=== PATIENT | female | born 1960 | race African-American/Black ===

== ENCOUNTER 2018-02-01 15:30 | Inpatient (IN) | payer MEDICARE, MEDICAID ==
[2018-02-01 16:29] VITALS: BP 124/70
[2018-02-01] MEDS ORDERED: Magnesium Hydroxide (MOM) 30 mL UDC PO PRN (16:29)
[2018-02-01] MEDS ORDERED: Maalox 30 mL Cup PO PRN (16:29)
[2018-02-02] MEDS: Multivitamin Tab PO SCH (10:05)
[2018-02-02] MEDS: Aspirin 81mg Chewable Tab PO SCH (10:06)
--- NOTE | 2018-02-02 15:35 | History and Physical ---
History of Present Illness - HPI Chief Complaint: Psychosis HPI: 57 y/o female who is a direct admit to [facility] from [facility] for a 5150. Patient is gravely disabled and danger to self due to refusing to eat, drink or take medications. Patient is reported to having heard voices telling to kill herself. PMH includes Type 2 diabetes, chronic kidney disease stage 3, CAD with CABG, schizophrenia, Essential HTN, and hypelipidemia. She has no known allergies and is a full code. 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 Labwork Vital Signs: Last Vital Signs Temp 97.6 F 02/01/18 20:00 Pulse 77 02/01/18 20:00 Resp 19 02/01/18 20:00 BP 125/56 02/01/18 20:00 Pulse Ox Past Medical History Cardiovascular: Report: CAD, HTN, Hyperlipidemia Pulmonary: Report: No Pertinent Hx MUSIC EDUCATOR: Report: CVA GI: Report: No Pertinent Hx Psych: Report: Psychosis, Schizophrenia Musculoskeletal: Report: No Pertinent Hx Rheumatologic: Report: No pertinent Hx Infectious Disease: Report: No Pertinent Hx Renal/: Report: Chronic Renal Failure (Stage 3) Dermatology: Report: No Pertinent Hx - Past Surgical History Past Surgical History: CABG Family Medical History - Family Member Mother History Unknown: Yes Social History Smoke: No Alcohol: None Drugs: None Lives: Alone - Medications Home Medications: Home Medication Medication Instructions Recorded Type Aripiprazole [Abilify] 2.5 mg PO BID 02/01/18 History Aspirin [Aspirin Chewable] 162 mg PO DAILY 02/01/18 History - Allergies Allergies/Adverse Reactions: Allergies Allergy/AdvReac Type Severity Reaction Status Date / Time No Known Allergies Allergy Verified 02/01/18 16:24 Review of Systems - Review of Systems Constitutional: Report: No Significant Eyes: Report: No Significant ENT: Report: No Significant Respiratory: Report: No Significant Cardiovascular: Report: No Significant Gastrointestinal: Report: No Significant Genitourinary: Report: No Significant Musculoskeletal: Report: No Significant Skin: Report: No Significant Neurological: Report: No Significant - Lab Results All Lab Results last 24 hours: Laboratory Results - last 24 hr 02/01/18 17:35 POC Glucose 129 H - Assessment Assessment: psychosis Type 2 DM Chronic kidney Disorder Stage 3 h/o CABG HTN Htperlipidemia CAD Schizophrenia 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
[2018-02-02] MEDS: INSULIN ASPART SLIDING SCALE 100 UNITS/ML UNIT SUBQ SCH ×2 (17:36→20:12)
--- NOTE | 2018-02-03 05:35 | Psychosocial Evaluation ---
DATE OF SERVICE: 02/02/2018 IDENTIFYING DATA: The patient is a 57-year-old -Hungarian woman, , living with her . Information obtained by directly interviewing the patient as well as reviewing the admission papers. JUSTIFICATION OF HOSPITALIZATION: The patient is admitted on 5150 as being gravely disabled and danger to self, as per the information obtained, the patient is reported to have not been here. CHIEF COMPLAINT: "I do not know. My is taking care of me." HISTORY OF PRESENT ILLNESS: This is the first psychiatric hospitalization to this patient on a 5150 for grave disability and danger to self because the patient is not eating or drinking, or taking any medications. The patient has been reported to have been responding to the voices that are telling to kill her ____. Staff was spoken to. The patient is interviewed. During the interview, the patient is mentioning that since her sister she has been having difficult time to deal with the life and she has not been able to accept it and telling that the sister is in [place]. The patient is not sleeping. Appetite is reported to be very poor. The patient is stating that she has been having a mental illness for a long period of time and is being followed up by a psychiatrist in [place]. PAST PSYCHIATRIC HISTORY: Details are not known with regard to psychiatric hospitalizations. MEDICAL HISTORY: The patient has a history of type 2 diabetes mellitus, chronic kidney disease, history of CABG, essential hypertension, and hyperlipidemia. ALLERGIES: None at this time. SUBSTANCE ABUSE HISTORY: None. SOCIAL HISTORY: The patient is , living with her . The patient has 2 grownup children. STRENGTH AND ASSETS: The patient is motivated. MENTAL STATUS EXAMINATION: The patient is a 57-year-old, looking older than her stated age. Personal hygiene is extremely poor. Insight and judgment are very much impaired. Impulse control is noted to be limited. The patient is feeling helpless and hopeless. The patient is stating that the voices are telling that they are going to be killing her. The patient is not able to care for self. The patient is alert and aware that she is in the hospital. Attention span and concentration are noted to be very poor. The patient is motivated for treatment. ____ examination is significant for the patient to be disheveled and confused and with a poor personal hygiene. DIAGNOSTIC IMPRESSION: AXIS I: Schizophrenia, chronic paranoid type; rule out schizoaffective disorder. AXIS II: None. AXIS III: Diabetes mellitus, hypertension, chronic kidney disease, CABG, hyperlipidemia, and essential hypertension. IMMEDIATE TREATMENT PLAN: The patient is going to be continued on Abilify and Lexapro is going to be added. ESTIMATED LENGTH OF STAY: Three to five days. DISCHARGE CRITERIA: When the patient is no longer a threat to self or others and be able to cope up with the stress. [facility]# [id number]
[2018-02-03] MEDS: INSULIN ASPART SLIDING SCALE 100 UNITS/ML UNIT SUBQ SCH ×4 (06:47→20:48)
[2018-02-03] MEDS: Multivitamin Tab PO SCH (10:26)
[2018-02-03] MEDS: Aspirin 81mg Chewable Tab PO SCH (10:27)
[2018-02-03] MEDS: Escitalopram Oxalate 5 mg Tab PO SCH (10:27)
--- NOTE | 2018-02-04 00:31 | Consultation ---
DATE OF CONSULTATION: 02/03/2018 REQUESTING PHYSICIAN: Ann Marie Bajwa M.D. TYPE OF CONSULTATION: Psychology. HISTORY OF PRESENT ILLNESS: The following is by review of the medical record and by the patient's self report. The patient is a 57-year-old -[place]isian female. The patient is being admitted on a 5150 hold as being gravely disabled as well as a danger to self. According to record review, the patient's family indicated that she has not been eating or drinking or taking any medications. The patient has been reported to be responding to voices that are command type telling her to kill herself. The patient stated that her sister recently. There is an indication of a history of mental illness. The patient admits passive suicidal ideation with intention, but no specific plan. PAST MEDICAL HISTORY: Please see history and physical. PAST PSYCHIATRIC HISTORY: Information is not available at the time of this clinical interview. ALLERGIES: No known drug allergies. CURRENT MEDICATIONS: Please see admission medication reconciliation. SUBSTANCE ABUSE HISTORY: None. PSYCHOSOCIAL HISTORY: The patient is and lives with her at home. The patient has 2 adult children. The patient stated that her sister in [place] about a year ago. The patient stated that she is having difficulty accepting her sister's passing. The patient did not answer questions about occupational history or educational history. The patient denied any abuse history or any legal problems at this time. The patient states she is baptism, but did not state any specific denomination. MENTAL STATUS EXAMINATION: The patient appears to be her state age. The patient's personal hygiene seems to be poor. The patient's attitude is superficially cooperative. Eye contact is poor. The patient's mood is dysphoric. Affect is constricted and incongruent to mood. The patient's body odor is noticeable. The patient is somewhat disheveled. Thought process shows to be confused and possible derailments are noted here. The patient denied any paranoid delusions. She denied any visual hallucinations. However, the patient does endorse the experience of auditory hallucinations. Specifically she hears voices that are command type telling her to kill herself. The patient's behavior has been redirectable thus far. Impulse control is compromised. The patient was unable to sustain focus and attention. Concentration is poor. The patient's memory seems to be impaired for immediate short term and long-term dimensions. Sensorium is alert and oriented to place and self only. The patient did not participate in the interpretation of proverbs. The patient was quite confused about this particular portion of the clinical interview. The patient appears to be motivated for treatment. However, insight is poor. Judgment is impaired. DIAGNOSTIC IMPRESSION: AXIS I: Provisional diagnosis of schizophrenia, chronic paranoid type by history. AXIS II: Deferred. AXIS III: Please see history and physical. PLAN: The patient has been seen by Dr. Bajwa for psychiatric evaluation and for the management of the patient's psychotropic medications. The patient is continued on Abilify and Lexapro will be added. She will be closely monitored for the efficacy of medication and any possible side effects by the psychiatrist and nursing staff. We will provide reality orientation, reality differentiation, and reality integration. We will provide every opportunity for the patient to verbally contract for safety, i.e., no self-harm as well as to verbalize any suicidal thoughts to the staff as she is experiencing them. We will provide coping strategies for phase of life issues. We will provide grief and bereavement therapy with respect to the patient's biological sister passing recently. We will continue to provide supportive psychotherapy throughout the course of the patient's hospital stay. Thank you, Dr. Bajwa, for this consult and the opportunity to participate with you in this patient's care. JOB# [id number]
--- NOTE | 2018-02-04 04:36 | Progress Notes ---
DATE: 02/03/2018 SUBJECTIVE: Staff was spoken to. The patient is interviewed. Mood is noted to be anxious and depressed. Affect is constricted. The patient is still responding to internal stimuli. Insight and judgment at this time are noted to be still impaired. Impulse control seems to be limited. The patient is still not able to care for herself and the patient seems to have fungal infection under the breasts. ASSESSMENT: The patient is still psychotic and depressed. PLAN: To continue the patient with the current medications and followup. JOB# [id number]
[2018-02-04] MEDS: INSULIN ASPART SLIDING SCALE 100 UNITS/ML UNIT SUBQ SCH ×4 (06:36→20:58)
--- NOTE | 2018-02-04 08:09 | General Progress Note ---
Subjective - Review of Systems Service Date: 02/04/18 Subjective: Patient was awake, alert, afebrile VS T98.1 P80 R20 BP 119/54 Objective - Results Recent Labs: Laboratory Last Values POC Glucose 129 MG/DL (70 - 105) H 02/01/18 17:35 - Physical Exam Vitals and I&O: Vital Signs Temp 98.1 F 02/04/18 06:23 Pulse 80 02/04/18 06:23 Resp 20 02/04/18 06:23 BP 119/54 02/04/18 06:23 Pulse Ox 94 02/04/18 06:23 Intake & Output 02/03/18 02/04/18 02/04/18 18:59 06:59 18:59 Intake Total 240 Balance 240 Intake: Oral 240 Other: # Voids 2 Active Medications: Current Medications Acetaminophen (Tylenol) 650 mg PO Q4HR PRN PRN Reason: Mild Pain / Temp above 100 Stop: 04/02/18 16:28 Al Hydrox/Mg Hydrox/Simethicone (Maalox) 30 ml PO Q4HR PRN PRN Reason: GI DISTRESS Stop: 04/02/18 16:28 Aripiprazole (Abilify) 5 mg PO HS AALIYAH PRN Reason: Protocol Stop: 04/03/18 20:59 Last Admin: 02/03/18 21:28 Dose: 5 mg Aspirin (Aspirin Chewable) 162 mg PO DAILY AALIYAH Stop: 04/03/18 08:59 Last Admin: 02/03/18 10:27 Dose: 162 mg Escitalopram Oxalate (Lexapro) 5 mg PO DAILY AALIYAH PRN Reason: Protocol Stop: 04/04/18 08:59 Last Admin: 02/03/18 10:27 Dose: 5 mg Insulin Aspart (Novolog Insulin Sliding Scale) 0 units SUBQ ACHS AALIYAH PRN Reason: Protocol Stop: 04/03/18 16:29 Last Admin: 02/04/18 06:36 Dose: Not Given Lisinopril (Zestril) 5 mg PO DAILY AALIYAH Stop: 04/04/18 08:59 Last Admin: 02/03/18 10:28 Dose: 5 mg Lorazepam (Ativan) 0.5 mg PO Q4HR PRN; Protocol PRN Reason: Anxiety Stop: 03/03/18 16:28 Magnesium Hydroxide (Milk Of Magnesia) 30 ml PO HS PRN PRN Reason: Constipation Metformin HCl (Glucophage) 500 mg PO DAILY [facility] Stop: 04/04/18 08:59 Last Admin: 02/03/18 10:26 Dose: 500 mg Multivitamins/Vitamin C (Theragran) 1 tab PO DAILY AALIYAH Stop: 04/03/18 08:59 Last Admin: 02/03/18 10:26 Dose: 1 tab Simvastatin (Zocor) 10 mg PO HS AALIYAH PRN Reason: Protocol Stop: 04/03/18 20:59 Last Admin: 02/03/18 21:28 Dose: 10 mg Zolpidem Tartrate (Ambien) 5 mg PO HS PRN PRN Reason: Insomnia Stop: 04/02/18 16:28 Last Admin: 02/03/18 21:28 Dose: 5 mg General: Alert, No acute distress HEENT: Atraumatic, PERRLA, EOMI Neck: Supple Cardiovascular: Regular rate, Normal S1, Normal S2 Abdomen: Bowel sounds, Soft Extremities: no Clubbing, no Cyanosis, no Edema Neurological: Normal gait Assessment/Plan - Assessment Assessment: psychosis Type 2 DM Chronic kidney Disorder Stage 3 h/o CABG HTN Htperlipidemia CAD Schizophrenia constracutres to upepr extremities incontinence - Plan [facility] current orders.
[2018-02-04] MEDS: Escitalopram Oxalate 5 mg Tab PO SCH (09:52)
[2018-02-04] MEDS: Multivitamin Tab PO SCH (09:52)
[2018-02-04] MEDS: Aspirin 81mg Chewable Tab PO SCH (09:53)
--- NOTE | 2018-02-04 15:48 | Progress Notes ---
DATE: 02/04/2018 SUBJECTIVE: Staff was spoken to. The patient's affect is constricted. Insight and judgment is noted to be still impaired. Impulse control seems to be limited. The patient is very depressed, isolative and withdrawn. Personal hygiene is noted to be extremely poor. The patient is currently on the escitalopram to help her with the depression and the patient also has been on aripiprazole to help her with the voices. The patient continues to have the problem with the voices and hence the aripiprazole is going to be changed to 10 mg at bedtime and the patient is going to be followed up with the supportive therapy. The patient is not able to care for herself at this time. ASSESSMENT: The patient is still psychotic and depressed. PLAN: To continue the patient with the supportive therapy. Encouraged the patient to verbalize the concerns rather than to act out. JOB# [id number]
[2018-02-05] MEDS: INSULIN ASPART SLIDING SCALE 100 UNITS/ML UNIT SUBQ SCH ×4 (06:41→21:05)
--- NOTE | 2018-02-05 08:24 | General Progress Note ---
Subjective - Review of Systems Service Date: 02/06/18 Subjective: Patient was awake, alert, afebrile. VS T98.1 P89 R20 BP 110/76 Objective - Results Recent Labs: Laboratory Last Values POC Glucose 129 MG/DL (70 - 105) H 02/01/18 17:35 - Physical Exam Vitals and I&O: Vital Signs Temp 98.1 F 02/05/18 06:35 Pulse 89 02/05/18 06:35 Resp 20 02/05/18 06:35 BP 110/76 02/05/18 06:35 Pulse Ox 98 02/05/18 06:35 Intake & Output 02/04/18 02/05/18 02/05/18 18:59 06:59 18:59 Intake Total 60 Balance 60 Intake: Oral 60 Other: # Voids 2 # Bowel Movements 0 Active Medications: Current Medications Acetaminophen (Tylenol) 650 mg PO Q4HR PRN PRN Reason: Mild Pain / Temp above 100 Stop: 04/02/18 16:28 Al Hydrox/Mg Hydrox/Simethicone (Maalox) 30 ml PO Q4HR PRN PRN Reason: GI DISTRESS Stop: 04/02/18 16:28 Aripiprazole (Abilify) 10 mg PO HS AALIYAH PRN Reason: Protocol Stop: 04/05/18 20:59 Last Admin: 02/04/18 20:58 Dose: 10 mg Aspirin (Aspirin Chewable) 162 mg PO DAILY AALIYAH Stop: 04/03/18 08:59 Last Admin: 02/04/18 09:53 Dose: 162 mg Escitalopram Oxalate (Lexapro) 5 mg PO DAILY AALIYAH PRN Reason: Protocol Stop: 04/04/18 08:59 Last Admin: 02/04/18 09:52 Dose: 5 mg Insulin Aspart (Novolog Insulin Sliding Scale) 0 units SUBQ ACHS AALIYAH PRN Reason: Protocol Stop: 04/03/18 16:29 Last Admin: 02/05/18 06:41 Dose: Not Given Lisinopril (Zestril) 5 mg PO DAILY AALIYAH Stop: 04/04/18 08:59 Last Admin: 02/04/18 09:54 Dose: Not Given Lorazepam (Ativan) 0.5 mg PO Q4HR PRN; Protocol PRN Reason: Anxiety Stop: 03/03/18 16:28 Magnesium Hydroxide (Milk Of Magnesia) 30 ml PO HS PRN PRN Reason: Constipation Metformin HCl (Glucophage) 500 mg PO DAILY AALI[facility] Stop: 04/04/18 08:59 Last Admin: 02/04/18 09:52 Dose: 500 mg Multivitamins/Vitamin C (Theragran) 1 tab PO DAILY AALIYAH Stop: 04/03/18 08:59 Last Admin: 02/04/18 09:52 Dose: 1 tab Simvastatin (Zocor) 10 mg PO HS AALIYAH PRN Reason: Protocol Stop: 04/03/18 20:59 Last Admin: 02/04/18 20:58 Dose: 10 mg Zolpidem Tartrate (Ambien) 5 mg PO HS PRN PRN Reason: Insomnia Stop: 04/02/18 16:28 Last Admin: 02/03/18 21:28 Dose: 5 mg General: Alert, No acute distress HEENT: Atraumatic, PERRLA, EOMI Neck: Supple Cardiovascular: Regular rate, Normal S1, Normal S2 Abdomen: Bowel sounds, Soft Extremities: no Clubbing, no Cyanosis, no Edema Neurological: Normal gait Assessment/Plan - Assessment Assessment: psychosis Type 2 DM Chronic kidney Disorder Stage 3 h/o CABG HTN Htperlipidemia CAD Schizophrenia constracutres to upepr extremities incontinence - Plan [facility].
[2018-02-05] MEDS: Escitalopram Oxalate 5 mg Tab PO SCH (09:03)
[2018-02-05] MEDS: Aspirin 81mg Chewable Tab PO SCH (09:03)
[2018-02-05] MEDS: Multivitamin Tab PO SCH (09:04)
--- NOTE | 2018-02-06 03:07 | Progress Notes ---
DATE: 02/05/2018 SUBJECTIVE: Staff was spoken to. The patient is interviewed. Mood is noted to be depressed. Affect is constricted. The patient is isolated and withdrawn. Her insight and judgment at this time are noted to be very much impaired. Impulse control is noted to be poor. The patient has been stating that she does not need any medications. The patient has been very reluctant to comply with the treatment. Personal hygiene is noted to be extremely poor. Staff are reporting that the patient has been having fungal infection underneath her breasts and physical examination is requested to be done and the primary care physician has been requested to take a look at the patient's fungal infection and the patient at this time is gravely disabled and total care. The patient is still responding to the internal stimuli. Coping skills are noted to be extremely poor. ASSESSMENT: The patient is still paranoid. PLAN: I encouraged the patient to verbalize the concerns. I will continue the patient with the Abilify and increase the dose on the citalopram to 10 mg and follow the patient up. JOB# [id number]
[2018-02-06] MEDS: INSULIN ASPART SLIDING SCALE 100 UNITS/ML UNIT SUBQ SCH ×4 (07:29→22:14)
--- NOTE | 2018-02-06 08:08 | General Progress Note ---
Subjective - Review of Systems Service Date: 02/06/18 Subjective: Patient was awake, alert, afebrile. VS T97.1 P74 R18 BP 120/74 Objective - Results Recent Labs: Laboratory Last Values POC Glucose 83 MG/DL (70 - 105) 02/06/18 06:49 - Physical Exam Vitals and I&O: Vital Signs Temp 97.1 F 02/06/18 07:02 Pulse 74 02/06/18 07:02 Resp 18 02/06/18 07:02 BP 120/74 02/06/18 07:02 Pulse Ox 98 02/06/18 07:02 Intake & Output 02/05/18 02/06/18 02/06/18 18:59 06:59 18:59 Intake Total 480 120 Balance 480 120 Intake: Oral 480 120 Other: # Voids 2 3 Active Medications: Current Medications Acetaminophen (Tylenol) 650 mg PO Q4HR PRN PRN Reason: Mild Pain / Temp above 100 Stop: 04/02/18 16:28 Al Hydrox/Mg Hydrox/Simethicone (Maalox) 30 ml PO Q4HR PRN PRN Reason: GI DISTRESS Stop: 04/02/18 16:28 Aripiprazole (Abilify) 10 mg PO HS AALIYAH PRN Reason: Protocol Stop: 04/05/18 20:59 Last Admin: 02/05/18 20:59 Dose: 10 mg Aspirin (Aspirin Chewable) 162 mg PO DAILY [facility] Stop: 04/03/18 08:59 Last Admin: 02/05/18 09:03 Dose: 162 mg Escitalopram Oxalate (Lexapro) 10 mg PO DAILY AALIYAH PRN Reason: Protocol Stop: 04/06/18 18:49 Insulin Aspart (Novolog Insulin Sliding Scale) 0 units SUBQ ACHS AALIYAH PRN Reason: Protocol Stop: 04/03/18 16:29 Last Admin: 02/06/18 07:29 Dose: Not Given Lisinopril (Zestril) 5 mg PO DAILY [facility] Stop: 04/04/18 08:59 Last Admin: 02/05/18 09:03 Dose: 5 mg Lorazepam (Ativan) 0.5 mg PO Q4HR PRN; Protocol PRN Reason: Anxiety Stop: 03/03/18 16:28 Last Admin: 02/05/18 20:59 Dose: 0.5 mg Magnesium Hydroxide (Milk Of Magnesia) 30 ml PO HS PRN PRN Reason: Constipation Metformin HCl (Glucophage) 500 mg PO DAILY AALIYAH Stop: 04/04/18 08:59 Last Admin: 02/05/18 09:04 Dose: 500 mg Multivitamins/Vitamin C (Theragran) 1 tab PO DAILY AALIYAH Stop: 04/03/18 08:59 Last Admin: 02/05/18 09:04 Dose: 1 tab Simvastatin (Zocor) 10 mg PO HS AALIYAH PRN Reason: Protocol Stop: 04/03/18 20:59 Last Admin: 02/05/18 20:59 Dose: 10 mg Zolpidem Tartrate (Ambien) 5 mg PO HS PRN PRN Reason: Insomnia Stop: 04/02/18 16:28 Last Admin: 02/05/18 20:59 Dose: 5 mg General: Alert, No acute distress HEENT: Atraumatic, PERRLA, EOMI Neck: Supple Cardiovascular: Regular rate, Normal S1, Normal S2 Abdomen: Bowel sounds, Soft Extremities: no Clubbing, no Cyanosis, no Edema Neurological: Normal gait Assessment/Plan - Assessment Assessment: psychosis Type 2 Diabetes mellitus Chronic kidney Disorder Stage 3 h/o Coronary Artery Bypass Graft Hypertension Hyperlipidemia CAD Schizophrenia 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
[2018-02-06] MEDS: Multivitamin Tab PO SCH (09:15)
[2018-02-06] MEDS: Escitalopram Oxalate 5 mg Tab PO SCH (09:15)
[2018-02-06] MEDS: Aspirin 81mg Chewable Tab PO SCH (09:15)
--- NOTE | 2018-02-06 17:32 | Progress Notes ---
DATE: 02/06/2018 SUBJECTIVE: Staff was spoken to. The patient is interviewed. Mood is noted to be depressed. Affect is constricted. Insight and judgment are noted to be still impaired. Impulse control is noted to be limited. Coping skills are noted to be limited. The patient has been having difficult time to cope with the stress. No side effects to the medications are noted. The patient is isolative and withdrawn at this time. The patient continues to be responding to internal stimuli, but he is stating that he does not need to be on medication. ASSESSMENT: The patient is still depressed and psychotic. PLAN: To continue the patient with the current medications. I encouraged the patient to verbalize the concerns rather than to act out. [facility]# [id number]
[2018-02-07] MEDS: INSULIN ASPART SLIDING SCALE 100 UNITS/ML UNIT SUBQ SCH ×4 (06:52→21:49)
--- NOTE | 2018-02-07 08:28 | General Progress Note ---
Subjective - Review of Systems Service Date: 02/07/18 Subjective: Patient was awake, alert, afebrile. VS T97.2 P79 R20 BP 123/78 Objective - Results Recent Labs: Laboratory Last Values POC Glucose 83 MG/DL (70 - 105) 02/06/18 21:59 - Physical Exam Vitals and I&O: Vital Signs Temp 97.2 F 02/07/18 06:36 Pulse 79 02/07/18 06:36 Resp 20 02/07/18 06:36 BP 123/78 02/07/18 06:36 Pulse Ox 100 02/07/18 06:36 Intake & Output 02/06/18 02/07/18 02/07/18 18:59 06:59 18:59 Intake Total 600 250 Output Total 3 Balance 600 247 Intake: Oral 600 250 Output: Stool 3 Other: # Voids 2 # Bowel Movements 1 Active Medications: Current Medications Acetaminophen (Tylenol) 650 mg PO Q4HR PRN PRN Reason: Mild Pain / Temp above 100 Stop: 04/02/18 16:28 Al Hydrox/Mg Hydrox/Simethicone (Maalox) 30 ml PO Q4HR PRN PRN Reason: GI DISTRESS Stop: 04/02/18 16:28 Aripiprazole (Abilify) 10 mg PO HS AALIYAH PRN Reason: Protocol Stop: 04/05/18 20:59 Last Admin: 02/07/18 06:49 Dose: Not Given Aspirin (Aspirin Chewable) 162 mg PO DAILY AALIYAH Stop: 04/03/18 08:59 Last Admin: 02/06/18 09:15 Dose: 162 mg Escitalopram Oxalate (Lexapro) 10 mg PO DAILY AALIYAH PRN Reason: Protocol Stop: 04/06/18 18:49 Last Admin: 02/06/18 09:15 Dose: 10 mg Insulin Aspart (Novolog Insulin Sliding Scale) 0 units SUBQ ACHS AALIYAH PRN Reason: Protocol Stop: 04/03/18 16:29 Last Admin: 02/07/18 06:52 Dose: Not Given Lisinopril (Zestril) 5 mg PO DAILY AALIYAH Stop: 04/04/18 08:59 Last Admin: 02/06/18 09:16 Dose: 5 mg Lorazepam (Ativan) 0.5 mg PO Q4HR PRN; Protocol PRN Reason: Anxiety Stop: 03/03/18 16:28 Last Admin: 02/05/18 20:59 Dose: 0.5 mg Magnesium Hydroxide (Milk Of Magnesia) 30 ml PO HS PRN PRN Reason: Constipation Metformin HCl (Glucophage) 500 mg PO DAILY AALI[facility]AH Stop: 04/04/18 08:59 Last Admin: 02/06/18 09:16 Dose: 500 mg Multivitamins/Vitamin C (Theragran) 1 tab PO DAILY A[facility] Stop: 04/03/18 08:59 Last Admin: 02/06/18 09:15 Dose: 1 tab Simvastatin (Zocor) 10 mg PO HS AALIYAH PRN Reason: Protocol Stop: 04/03/18 20:59 Last Admin: 02/07/18 06:51 Dose: Not Given Zolpidem Tartrate (Ambien) 5 mg PO HS PRN PRN Reason: Insomnia Stop: 04/02/18 16:28 Last Admin: 02/05/18 20:59 Dose: 5 mg General: Alert, No acute distress HEENT: Atraumatic, PERRLA, EOMI Neck: Supple Cardiovascular: Regular rate, Normal S1, Normal S2 Abdomen: Bowel sounds, Soft Extremities: no Clubbing, no Cyanosis, no Edema Neurological: Normal gait Assessment/Plan - Assessment Assessment: psychosis Type 2 Diabetes mellitus Chronic kidney Disorder Stage 3 h/o Coronary Artery Bypass Graft Hypertension Hyperlipidemia CAD Schizophrenia 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
[2018-02-07] MEDS: Aspirin 81mg Chewable Tab PO SCH (09:39)
[2018-02-07] MEDS: Multivitamin Tab PO SCH (09:39)
[2018-02-07] MEDS: Escitalopram Oxalate 5 mg Tab PO SCH (09:39)
--- NOTE | 2018-02-08 03:00 | Progress Notes ---
DATE: 02/07/2018 PSYCHIATRIC PROGRESS NOTE SUBJECTIVE: Staff was spoken to. The patient is interviewed. Mood is noted to be irritable. Affect is constricted. The patient is stating that she is doing fine. I need to get in touch with her and get her out of here. The patient's coping skills are noted to be very poor. The patient has been having difficult time to cope with the stress. Continues to be paranoid and depressed. Personal hygiene is noted to be extremely poor. ASSESSMENT: The patient is still depressed. PLAN: To continue the patient with the supportive therapy and continued her on the Lexapro and add a low dose of the antipsychotic medication Seroquel at night time and follow the patient up. [facility]# [id number]
[2018-02-08] MEDS: INSULIN ASPART SLIDING SCALE 100 UNITS/ML UNIT SUBQ SCH ×4 (06:37→21:37)
--- NOTE | 2018-02-08 08:17 | General Progress Note ---
Subjective - Review of Systems Service Date: 02/08/18 Subjective: Patient was awake, alert, afebrile. VS T97.6 P81 R18 BP 143/76 Objective - Results Recent Labs: Laboratory Last Values POC Glucose 97 MG/DL (70 - 105) 02/08/18 05:47 - Physical Exam Vitals and I&O: Vital Signs Temp 97.6 F 02/07/18 14:00 Pulse 81 02/07/18 14:00 Resp 18 02/07/18 14:00 BP 143/76 02/07/18 14:00 Pulse Ox 97 02/07/18 14:00 Intake & Output 02/07/18 02/08/18 02/08/18 18:59 06:59 18:59 Intake Total 700 Balance 700 Intake: Oral 700 Other: # Voids 3 # Bowel Movements 0 Active Medications: Current Medications Acetaminophen (Tylenol) 650 mg PO Q4HR PRN PRN Reason: Mild Pain / Temp above 100 Stop: 04/02/18 16:28 Al Hydrox/Mg Hydrox/Simethicone (Maalox) 30 ml PO Q4HR PRN PRN Reason: GI DISTRESS Stop: 04/02/18 16:28 Aripiprazole (Abilify) 10 mg PO HS AALIYAH PRN Reason: Protocol Stop: 04/05/18 20:59 Last Admin: 02/07/18 21:50 Dose: Not Given Aspirin (Aspirin Chewable) 162 mg PO DAILY AALIYAH Stop: 04/03/18 08:59 Last Admin: 02/07/18 09:39 Dose: Not Given Escitalopram Oxalate (Lexapro) 10 mg PO DAILY AALIYAH PRN Reason: Protocol Stop: 04/06/18 18:49 Last Admin: 02/07/18 09:39 Dose: Not Given Insulin Aspart (Novolog Insulin Sliding Scale) 0 units SUBQ ACHS AALIYAH PRN Reason: Protocol Stop: 04/03/18 16:29 Last Admin: 02/08/18 06:37 Dose: Not Given Lisinopril (Zestril) 5 mg PO DAILY AALIYAH Stop: 04/04/18 08:59 Last Admin: 02/07/18 09:39 Dose: Not Given Lorazepam (Ativan) 0.5 mg PO Q4HR PRN; Protocol PRN Reason: Anxiety Stop: 03/03/18 16:28 Last Admin: 02/05/18 20:59 Dose: 0.5 mg Magnesium Hydroxide (Milk Of Magnesia) 30 ml PO HS PRN PRN Reason: Constipation Metformin HCl (Glucophage) 500 mg PO DAILY [facility] Stop: 04/04/18 08:59 Last Admin: 02/07/18 09:39 Dose: Not Given Multivitamins/Vitamin C (Theragran) 1 tab PO DAILY AALIYAH Stop: 04/03/18 08:59 Last Admin: 02/07/18 09:39 Dose: Not Given Quetiapine Fumarate (Seroquel) 12.5 mg PO HS AALIYAH PRN Reason: Protocol Stop: 04/08/18 20:59 Simvastatin (Zocor) 10 mg PO HS AALIYAH PRN Reason: Protocol Stop: 04/03/18 20:59 Last Admin: 02/07/18 21:50 Dose: Not Given Zolpidem Tartrate (Ambien) 5 mg PO HS PRN PRN Reason: Insomnia Stop: 04/02/18 16:28 Last Admin: 02/05/18 20:59 Dose: 5 mg General: Alert, No acute distress HEENT: Atraumatic, PERRLA, EOMI Neck: Supple Cardiovascular: Regular rate, Normal S1, Normal S2 Abdomen: Bowel sounds, Soft Extremities: no Clubbing, no Cyanosis, no Edema Neurological: Normal gait Assessment/Plan - Assessment Assessment: psychosis Type 2 Diabetes mellitus Chronic kidney Disorder Stage 3 h/o Coronary Artery Bypass Graft Hypertension Hyperlipidemia CAD Schizophrenia 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 Nutritional Asmnt/Malnutr-PDOC - Dietary Evaluation Malnutrition Findings (Please click <Entered> for more info): Nutritional Asmnt/Malnutrition Start: 02/07/18 14: 22 Text: Status: Complete Freq: Document 02/07/18 14:22 [email or web address] (Rec: 02/07/18 14:31 [id number] [id number]) Nutritional Asmnt/Malnutrition Patient General Information Nutritional Screening Moderate Risk Diagnosis psychosis nos Pertinent Medical Hx/Surgical Hx DM2, CKD stage 3, CAD with CABG, schizophrenia, essential HTN, hyperlipidemia Subjective Information Pt seen sleeping in bed at time of visit. Spoke with RN, RN reported pt is paranoid, hearing voice telling her not to eat. Per CHEMIST INSTRUMENTATION, pt refused eat/drink and medications. Per EMR, PO intake 20-25%. Current Diet Order/ Nutrition Support CCHO-60gm Pertinent Medications novolog, glucophage, theragran Pertinent Labs 02/01-02/06 POC 83-129 Nutritional Hx/Data Height 1.68 m Height (Calculated Centimeters) 167.6 Current Weight (lbs) 79.832 kg Weight (Calculated Kilograms) 79.8 Weight (Calculated Grams) 48337.3 [place] Body Weight 136 Body Mass Index (BMI) 28.4 Weight Status Overweight GI Symptoms GI Symptoms None Last BM 02/06 Difficult in: None Skin Integrity/Comment: dryness Current %PO Negligible < 25% Estimated Nutritional Goals BEE in Kcals: Adj wt of IBW Calories/Kcals/Kg 23-27 Kcals Calculated 5566-2129 Protein: Adj wt of IBW Protein g/k Protein Calculated 80 Fluid: ml 1840-2160ml (1ml/kcal) Nutritional Problem 1. Problem Problem inadequate food intake Etiology mental status Signs/Symptoms: pt refusing to eat, PO intake 20-25% Malnutrition Alert Protein-Calorie Malnutrition N/A Is there a minimum of two criteria No selected? Query Text:Check all the applicable criteria. A minimum of two criteria are recommended for diagnosis of either severe or non-severe malnutrition. Intervention/Recommendation Comments 1. Consider regular diet for liberalization d/t low PO intake. MD to consider appetite stimulant. 2. Monitor PO intake, wt, labs and skin integrity 3. F/U as high risk in 2-3 dyas, 02/09-02/10 Expected Outcomes/Goals Expected Outcomes/Goals 1. PO intake to meet at least 75% of nutritional needs. 2. Wt stability, skin to remain intact, labs to approach WNL.
[2018-02-08] MEDS: Aspirin 81mg Chewable Tab PO SCH (09:10)
[2018-02-08] MEDS: Escitalopram Oxalate 5 mg Tab PO SCH (09:11)
[2018-02-08] MEDS: Multivitamin Tab PO SCH (09:12)
--- NOTE | 2018-02-08 16:17 | Progress Notes ---
DATE: 02/08/2018 SUBJECTIVE: Staff was spoken to. The patient is interviewed. Mood is noted to be depressed. Affect is constricted. Insight and judgment at this time are noted to be still impaired. Impulse control is noted to be limited. The patient has been refusing to take the medications with great difficulty. The patient has been encouraged to verbalize the concerns and the patient has finally agreed to comply with the medication. The patient has no insight into her illness. The patient's sleep is noted to be fair. Appetite is noted to be poor. PLAN: The patient is currently on citalopram and I have her on 12.5 mg of the Seroquel, which is going to be discontinued and the patient is going to be placed on the Abilify and the patient is going to be placed on Abilify and followed up with supportive therapy. The patient is not ready to be discharged to a lower level of care yet. JOB# [id number]
--- NOTE | 2018-02-09 05:00 | General Progress Note ---
Subjective - Review of Systems Service Date: 02/09/18 Subjective: Patient was awake, alert, afebrile. VS T97.2 P83 R18 BP 129/59 Objective - Results Recent Labs: Laboratory Last Values POC Glucose 97 MG/DL (70 - 105) 02/08/18 05:47 - Physical Exam Vitals and I&O: Vital Signs Temp 97.2 F 02/08/18 20:00 Pulse 83 02/08/18 20:00 Resp 18 02/08/18 20:00 BP 129/59 02/08/18 20:00 Pulse Ox 100 02/08/18 20:00 Intake & Output 02/08/18 02/08/18 02/09/18 06:59 18:59 06:59 Intake Total 600 Balance 600 Intake: Oral 600 Other: # Voids 1 # Bowel Movements 0 Active Medications: Current Medications Acetaminophen (Tylenol) 650 mg PO Q4HR PRN PRN Reason: Mild Pain / Temp above 100 Stop: 04/02/18 16:28 Al Hydrox/Mg Hydrox/Simethicone (Maalox) 30 ml PO Q4HR PRN PRN Reason: GI DISTRESS Stop: 04/02/18 16:28 Aripiprazole (Abilify) 10 mg PO HS AALIYAH PRN Reason: Protocol Stop: 04/05/18 20:59 Last Admin: 02/08/18 21:36 Dose: Not Given Aripiprazole (Abilify) 2 mg PO DAILY AALIYAH PRN Reason: Protocol Stop: 04/10/18 08:59 Aspirin (Aspirin Chewable) 162 mg PO DAILY [facility] Stop: 04/03/18 08:59 Last Admin: 02/08/18 09:10 Dose: Not Given Escitalopram Oxalate (Lexapro) 10 mg PO DAILY AALIYAH PRN Reason: Protocol Stop: 04/06/18 18:49 Last Admin: 02/08/18 09:11 Dose: Not Given Insulin Aspart (Novolog Insulin Sliding Scale) 0 units SUBQ ACHS AALIYAH PRN Reason: Protocol Stop: 04/03/18 16:29 Last Admin: 02/08/18 21:37 Dose: Not Given Lisinopril (Zestril) 5 mg PO DAILY [facility] Stop: 04/04/18 08:59 Last Admin: 02/08/18 09:11 Dose: Not Given Lorazepam (Ativan) 0.5 mg PO Q4HR PRN; Protocol PRN Reason: Anxiety Stop: 03/03/18 16:28 Last Admin: 02/05/18 20:59 Dose: 0.5 mg Magnesium Hydroxide (Milk Of Magnesia) 30 ml PO HS PRN PRN Reason: Constipation Metformin HCl (Glucophage) 500 mg PO DAILY AALIYAH Stop: 04/04/18 08:59 Last Admin: 02/08/18 09:11 Dose: Not Given Multivitamins/Vitamin C (Theragran) 1 tab PO DAILY AALIYAH Stop: 04/03/18 08:59 Last Admin: 02/08/18 09:12 Dose: Not Given Simvastatin (Zocor) 10 mg PO HS AALIYAH PRN Reason: Protocol Stop: 04/03/18 20:59 Last Admin: 02/08/18 21:37 Dose: Not Given Zolpidem Tartrate (Ambien) 5 mg PO HS PRN PRN Reason: Insomnia Stop: 04/02/18 16:28 Last Admin: 02/05/18 20:59 Dose: 5 mg General: Alert, No acute distress HEENT: Atraumatic, PERRLA, EOMI Neck: Supple Cardiovascular: Regular rate, Normal S1, Normal S2 Abdomen: Bowel sounds, Soft Extremities: no Clubbing, no Cyanosis, no Edema Neurological: Normal gait Assessment/Plan - Assessment Assessment: psychosis Type 2 Diabetes mellitus Chronic kidney Disorder Stage 3 h/o Coronary Artery Bypass Graft Hypertension Hyperlipidemia CAD Schizophrenia 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 Nutritional Asmnt/Malnutr-PDOC - Dietary Evaluation Malnutrition Findings (Please click <Entered> for more info): Nutritional Asmnt/Malnutrition Start: 02/07/18 14: 22 Text: Status: Complete Freq: Document 02/07/18 14:22 LCHENG (Rec: 02/07/18 14:31 [id number] [id number]) Nutritional Asmnt/Malnutrition Patient General Information Nutritional Screening Moderate Risk Diagnosis psychosis nos Pertinent Medical Hx/Surgical Hx DM2, CKD stage 3, CAD with CABG, schizophrenia, essential HTN, hyperlipidemia Subjective Information Pt seen sleeping in bed at time of visit. Spoke with RN, RN reported pt is paranoid, hearing voice telling her not to eat. 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 Per EMR, PO intake 20-25%. Current Diet Order/ Nutrition Support CCHO-60gm Pertinent Medications novolog, glucophage, theragran Pertinent Labs 02/01-02/06 POC 83-129 Nutritional Hx/Data Height 1.68 m Height (Calculated Centimeters) 167.6 Current Weight (lbs) 79.832 kg Weight (Calculated Kilograms) 79.8 Weight (Calculated Grams) 04523.3 [place] Body Weight 136 Body Mass Index (BMI) 28.4 Weight Status Overweight GI Symptoms GI Symptoms None Last BM 02/06 Difficult in: None Skin Integrity/Comment: dryness Current %PO Negligible < 25% Estimated Nutritional Goals BEE in Kcals: Adj wt of IBW Calories/Kcals/Kg 23-27 Kcals Calculated 1284-7795 Protein: Adj wt of IBW Protein g/k Protein Calculated 80 Fluid: ml 1840-2160ml (1ml/kcal) Nutritional Problem 1. Problem Problem inadequate food intake Etiology mental status Signs/Symptoms: pt refusing to eat, PO intake 20-25% Malnutrition Alert Protein-Calorie Malnutrition N/A Is there a minimum of two criteria No selected? Query Text:Check all the applicable criteria. A minimum of two criteria are recommended for diagnosis of either severe or non-severe malnutrition. Intervention/Recommendation Comments 1. Consider regular diet for liberalization d/t low PO intake. MD to consider appetite stimulant. 2. Monitor PO intake, wt, labs and skin integrity 3. F/U as high risk in 2-3 dyas, 02/09-02/10 Expected Outcomes/Goals Expected Outcomes/Goals 1. PO intake to meet at least 75% of nutritional needs. 2. Wt stability, skin to remain intact, labs to approach WNL.
[2018-02-09] MEDS: INSULIN ASPART SLIDING SCALE 100 UNITS/ML UNIT SUBQ SCH ×4 (06:37→21:23)
[2018-02-09] MEDS: Aspirin 81mg Chewable Tab PO SCH ×3 (08:44→09:09)
[2018-02-09] MEDS: Escitalopram Oxalate 5 mg Tab PO SCH ×2 (08:45→09:09)
[2018-02-09] MEDS: Multivitamin Tab PO SCH ×2 (08:46→09:10)
--- NOTE | 2018-02-10 01:19 | Progress Notes ---
DATE: 02/09/2018 PSYCHIATRIC PROGRESS NOTE SUBJECTIVE: Staff was spoken to. The patient is interviewed. Mood is noted to be depressed. Affect is constricted. The patient is still isolative and withdrawn. Insight and judgment are noted to be still impaired. Impulse control is noted to be limited. No side effects to the medications are noted. ASSESSMENT: The patient is still depressed and psychotic. PLAN: To continue the patient with Lexapro and Abilify and follow the patient up. JOB# [id number]
[2018-02-10] MEDS: INSULIN ASPART SLIDING SCALE 100 UNITS/ML UNIT SUBQ SCH ×4 (07:04→21:06)
--- NOTE | 2018-02-10 07:48 | General Progress Note ---
Subjective - Review of Systems Service Date: 02/10/18 Subjective: Patient was awake, alert, afebrile. Still psychotic and depressed VS T97.1 P80 R19 BP 140/68 Objective - Results Recent Labs: Laboratory Last Values POC Glucose 75 MG/DL (70 - 105) 02/09/18 06:12 - Physical Exam Vitals and I&O: Vital Signs Temp 97.1 F 02/10/18 06:09 Pulse 80 02/10/18 06:09 Resp 19 02/10/18 06:09 BP 140/68 02/10/18 06:09 Pulse Ox 100 02/10/18 06:09 Intake & Output 02/09/18 02/10/18 02/10/18 18:59 06:59 18:59 Intake Total 600 180 Balance 600 180 Intake: Oral 600 180 Other: # Voids 2 1 # Bowel Movements 0 Active Medications: Current Medications Acetaminophen (Tylenol) 650 mg PO Q4HR PRN PRN Reason: Mild Pain / Temp above 100 Stop: 04/02/18 16:28 Al Hydrox/Mg Hydrox/Simethicone (Maalox) 30 ml PO Q4HR PRN PRN Reason: GI DISTRESS Stop: 04/02/18 16:28 Aripiprazole (Abilify) 10 mg PO HS AALIYAH PRN Reason: Protocol Stop: 04/05/18 20:59 Last Admin: 02/09/18 21:15 Dose: 10 mg Aripiprazole (Abilify) 2 mg PO DAILY AALIYAH PRN Reason: Protocol Stop: 04/10/18 08:59 Last Admin: 02/09/18 09:08 Dose: Not Given Aspirin (Aspirin Chewable) 162 mg PO DAILY AALIYAH Stop: 04/03/18 08:59 Last Admin: 02/09/18 09:09 Dose: Not Given Escitalopram Oxalate (Lexapro) 10 mg PO DAILY AALIYAH PRN Reason: Protocol Stop: 04/06/18 18:49 Last Admin: 02/09/18 09:09 Dose: Not Given Insulin Aspart (Novolog Insulin Sliding Scale) 0 units SUBQ ACHS AALIYAH PRN Reason: Protocol Stop: 04/03/18 16:29 Last Admin: 02/10/18 07:04 Dose: Not Given Lisinopril (Zestril) 5 mg PO DAILY [facility] Stop: 04/04/18 08:59 Last Admin: 04/22/18 09:09 Dose: Not Given Lorazepam (Ativan) 0.5 mg PO Q4HR PRN; Protocol PRN Reason: Anxiety Stop: 03/03/18 16:28 Last Admin: 02/05/18 20:59 Dose: 0.5 mg Magnesium Hydroxide (Milk Of Magnesia) 30 ml PO HS PRN PRN Reason: Constipation Metformin HCl (Glucophage) 500 mg PO DAILY AALIYAH Stop: 04/04/18 08:59 Last Admin: 02/09/18 09:10 Dose: Not Given Multivitamins/Vitamin C (Theragran) 1 tab PO DAILY AALIYAH Stop: 04/03/18 08:59 Last Admin: 02/09/18 09:10 Dose: Not Given Simvastatin (Zocor) 10 mg PO HS AALIYAH PRN Reason: Protocol Stop: 04/03/18 20:59 Last Admin: 02/09/18 21:15 Dose: 10 mg Zolpidem Tartrate (Ambien) 5 mg PO HS PRN PRN Reason: Insomnia Stop: 04/02/18 16:28 Last Admin: 02/05/18 20:59 Dose: 5 mg General: Alert, No acute distress HEENT: Atraumatic, PERRLA, EOMI Neck: Supple Cardiovascular: Regular rate, Normal S1, Normal S2 Abdomen: Bowel sounds, Soft Extremities: no Clubbing, no Cyanosis, no Edema Neurological: Normal gait Assessment/Plan - Assessment Assessment: psychosis Type 2 Diabetes mellitus Chronic kidney Disorder Stage 3 h/o Coronary Artery Bypass Graft Hypertension Hyperlipidemia CAD Schizophrenia 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 Nutritional Asmnt/Malnutr-PDOC - Dietary Evaluation Malnutrition Findings (Please click <Entered> for more info): Nutritional Asmnt/Malnutrition Start: 02/07/18 14: 22 Text: Status: Complete Freq: Document 02/07/18 14:22 TIBURCIO (Rec: 02/07/18 14:31 [email or web address] [id number]) Nutritional Asmnt/Malnutrition Patient General Information Nutritional Screening Moderate Risk Diagnosis psychosis nos Pertinent Medical Hx/Surgical Hx DM2, CKD stage 3, CAD with CABG, schizophrenia, essential HTN, hyperlipidemia Subjective Information Pt seen sleeping in bed at time of visit. Spoke with RN, RN reported pt is paranoid, hearing voice telling her not to eat. Per DIRECTOR BUSINESS DEVELOPMENT, pt refused eat/drink and medications. Per EMR, PO intake 20-25%. Current Diet Order/ Nutrition Support CCHO-60gm Pertinent Medications novolog, glucophage, theragran Pertinent Labs 02/01-02/06 POC 83-129 Nutritional Hx/Data Height 1.68 m Height (Calculated Centimeters) 167.6 Current Weight (lbs) 79.832 kg Weight (Calculated Kilograms) 79.8 Weight (Calculated Grams) 00144.3 [place] Body Weight 136 Body Mass Index (BMI) 28.4 Weight Status Overweight GI Symptoms GI Symptoms None Last BM 02/06 Difficult in: None Skin Integrity/Comment: dryness Current %PO Negligible < 25% Estimated Nutritional Goals BEE in Kcals: Adj wt of IBW Calories/Kcals/Kg 23-27 Kcals Calculated 9333-6698 Protein: Adj wt of IBW Protein g/k Protein Calculated 80 Fluid: ml 1840-2160ml (1ml/kcal) Nutritional Problem 1. Problem Problem inadequate food intake Etiology mental status Signs/Symptoms: pt refusing to eat, PO intake 20-25% Malnutrition Alert Protein-Calorie Malnutrition N/A Is there a minimum of two criteria No selected? Query Text:Check all the applicable criteria. A minimum of two criteria are recommended for diagnosis of either severe or non-severe malnutrition. Intervention/Recommendation Comments 1. Consider regular diet for liberalization d/t low PO intake. MD to consider appetite stimulant. 2. Monitor PO intake, wt, labs and skin integrity 3. F/U as high risk in 2-3 dyas, 02/09-02/10 Expected Outcomes/Goals Expected Outcomes/Goals 1. PO intake to meet at least 75% of nutritional needs. 2. Wt stability, skin to remain intact, labs to approach WNL.
[2018-02-10] MEDS: Multivitamin Tab PO SCH (09:56)
[2018-02-10] MEDS: Aspirin 81mg Chewable Tab PO SCH (09:56)
[2018-02-11] MEDS: INSULIN ASPART SLIDING SCALE 100 UNITS/ML UNIT SUBQ SCH ×4 (06:35→20:26)
--- NOTE | 2018-02-11 08:37 | General Progress Note ---
Subjective - Review of Systems Service Date: 02/11/18 Subjective: Patient was awake, alert, afebrile. Still psychotic and depressed VS T96.8 P84 R19 BP 136/76 Objective - Results Recent Labs: Laboratory Last Values POC Glucose 94 MG/DL (70 - 105) 02/11/18 06:31 - Physical Exam Vitals and I&O: Vital Signs Temp 96.8 F 02/11/18 06:30 Pulse 84 02/11/18 06:30 Resp 19 02/11/18 06:30 BP 136/76 02/11/18 06:30 Pulse Ox 99 02/11/18 06:30 Intake & Output 02/10/18 02/11/18 02/11/18 18:59 06:59 18:59 Intake Total 1100 120 Balance 1100 120 Intake: Oral 1100 120 Other: # Voids 3 2 # Bowel Movements 1 0 Active Medications: Current Medications Acetaminophen (Tylenol) 650 mg PO Q4HR PRN PRN Reason: Mild Pain / Temp above 100 Stop: 04/02/18 16:28 Al Hydrox/Mg Hydrox/Simethicone (Maalox) 30 ml PO Q4HR PRN PRN Reason: GI DISTRESS Stop: 04/02/18 16:28 Aripiprazole (Abilify) 5 mg PO HS AALIYAH PRN Reason: Protocol Stop: 04/11/18 08:59 Last Admin: 02/10/18 21:04 Dose: 5 mg Aspirin (Aspirin Chewable) 162 mg PO DAILY AALIYAH Stop: 04/03/18 08:59 Last Admin: 02/10/18 09:56 Dose: Not Given Escitalopram Oxalate (Lexapro) 20 mg PO DAILY AALIYAH PRN Reason: Protocol Stop: 04/11/18 08:59 Last Admin: 02/10/18 09:57 Dose: Not Given Insulin Aspart (Novolog Insulin Sliding Scale) 0 units SUBQ ACHS AALIYAH PRN Reason: Protocol Stop: 04/03/18 16:29 Last Admin: 02/11/18 06:35 Dose: Not Given Lisinopril (Zestril) 5 mg PO DAILY AALIYAH Stop: 04/04/18 08:59 Last Admin: 02/10/18 10:05 Dose: Not Given Lorazepam (Ativan) 0.5 mg PO Q4HR PRN; Protocol PRN Reason: Anxiety Stop: 03/03/18 16:28 Last Admin: 02/05/18 20:59 Dose: 0.5 mg Magnesium Hydroxide (Milk Of Magnesia) 30 ml PO HS PRN PRN Reason: Constipation Metformin HCl (Glucophage) 500 mg PO DAILY AALIYAH Stop: 04/04/18 08:59 Last Admin: 02/10/18 09:56 Dose: Not Given Multivitamins/Vitamin C (Theragran) 1 tab PO DAILY AALIYAH Stop: 04/03/18 08:59 Last Admin: 02/10/18 09:56 Dose: Not Given Simvastatin (Zocor) 10 mg PO HS AALIYAH PRN Reason: Protocol Stop: 04/03/18 20:59 Last Admin: 02/10/18 21:04 Dose: 10 mg Zolpidem Tartrate (Ambien) 5 mg PO HS PRN PRN Reason: Insomnia Stop: 04/02/18 16:28 Last Admin: 02/10/18 21:04 Dose: 5 mg General: Alert, No acute distress HEENT: Atraumatic, PERRLA, EOMI Neck: Supple Cardiovascular: Regular rate, Normal S1, Normal S2 Abdomen: Bowel sounds, Soft Extremities: no Clubbing, no Cyanosis, no Edema Neurological: Normal gait Assessment/Plan - Assessment Assessment: psychosis Type 2 Diabetes mellitus Chronic kidney Disorder Stage 3 h/o Coronary Artery Bypass Graft Hypertension Hyperlipidemia CAD Schizophrenia 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 Nutritional Asmnt/Malnutr-PDOC - Dietary Evaluation Malnutrition Findings (Please click <Entered> for more info): Nutritional Asmnt/Malnutrition Start: 02/07/18 14: 22 Text: Status: Complete Freq: Document 02/07/18 14:22 HENG (Rec: 02/07/18 14:31 [id number] [id number]) Nutritional Asmnt/Malnutrition Patient General Information Nutritional Screening Moderate Risk Diagnosis psychosis nos Pertinent Medical Hx/Surgical Hx DM2, CKD stage 3, CAD with CABG, schizophrenia, essential HTN, hyperlipidemia Subjective Information Pt seen sleeping in bed at time of visit. Spoke with RN, RN reported pt is paranoid, hearing voice telling her not to eat. 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 Per EMR, PO intake 20-25%. Current Diet Order/ [facility] Pertinent Medications novolog, glucophage, theragran Pertinent Labs 02/01-02/06 POC 83-129 Nutritional Hx/Data Height 1.68 m Height (Calculated Centimeters) 167.6 Current Weight (lbs) 79.832 kg Weight (Calculated Kilograms) 79.8 Weight (Calculated Grams) 89250.3 [place] Body Weight 136 Body Mass Index (BMI) 28.4 Weight Status Overweight GI Symptoms GI Symptoms None Last BM 02/06 Difficult in: None Skin Integrity/Comment: dryness Current %PO Negligible < 25% Estimated Nutritional Goals BEE in Kcals: Adj wt of IBW Calories/Kcals/Kg 23-27 Kcals Calculated 8339-8848 Protein: Adj wt of IBW Protein g/k Protein Calculated 80 Fluid: ml 1840-2160ml (1ml/kcal) Nutritional Problem 1. Problem Problem inadequate food intake Etiology mental status Signs/Symptoms: pt refusing to eat, PO intake 20-25% Malnutrition Alert Protein-Calorie Malnutrition N/A Is there a minimum of two criteria No selected? Query Text:Check all the applicable criteria. A minimum of two criteria are recommended for diagnosis of either severe or non-severe malnutrition. Intervention/Recommendation Comments 1. Consider regular diet for liberalization d/t low PO intake. MD to consider appetite stimulant. 2. Monitor PO intake, wt, labs and skin integrity 3. F/U as high risk in 2-3 dyas, 02/09-02/10 Expected Outcomes/Goals Expected Outcomes/Goals 1. PO intake to meet at least 75% of nutritional needs. 2. Wt stability, skin to remain intact, labs to approach WNL.
[2018-02-11] MEDS: Aspirin 81mg Chewable Tab PO SCH ×2 (09:41→10:10)
[2018-02-11] MEDS: Multivitamin Tab PO SCH ×2 (09:42→10:14)
--- NOTE | 2018-02-11 17:22 | Progress Notes ---
DATE: 02/10/2018 SUBJECTIVE: Staff was spoken to. The patient is interviewed. Mood is noted to be irritable. Affect is constricted. The patient is isolative and withdrawn. Eye contact is noted to be very poor. The patient has been placed on Abilify 10 mg at bedtime and has been continued, but patient is refusing to get out of the bed and continues to be very depressed. Plan to increase the dose on the Lexapro to 20 mg and adjust the dose on the Abilify to 5 mg at bedtime and follow the patient with supportive therapy. The patient at this time has been reluctant to participate in the groups and personal hygiene is also noted to be very poor. ASSESSMENT: The patient is still very paranoid and depressed. PLAN: Plan to continue the patient with increased dose on the Lexapro and Abilify and follow the patient up. JOB# [id number]
--- NOTE | 2018-02-12 04:52 | Progress Notes ---
DATE: 02/11/2018 SUBJECTIVE: Staff was spoken to. The patient is interviewed. Mood is noted to be irritable. Affect is constricted. The patient is stating that she does not want to go home because there is no one to take care of her. The patient is getting easily irritable and angry and is stating that he wants his back at home. The patient, however, has been given option of going to the alf facility and she refuses to do. ASSESSMENT: The patient is still depressed and paranoid. PLAN: To continue the patient with supportive therapy and work with the social services manager with regards to discharge of the patient. JOB# [id number]
[2018-02-12] MEDS: INSULIN ASPART SLIDING SCALE 100 UNITS/ML UNIT SUBQ SCH ×4 (06:34→20:53)
--- NOTE | 2018-02-12 08:25 | General Progress Note ---
Subjective - Review of Systems Service Date: 02/12/18 Subjective: Patient was awake, alert, afebrile. Still psychotic and depressed VS T97.9 P77 R19 BP 117/70 Objective - Results Recent Labs: Laboratory Last Values POC Glucose 104 MG/DL (70 - 105) 02/12/18 05:52 - Physical Exam Vitals and I&O: Vital Signs Temp 97.9 F 02/12/18 07:31 Pulse 77 02/12/18 07:31 Resp 19 02/12/18 07:31 BP 117/70 02/12/18 07:31 Pulse Ox 100 02/12/18 07:31 Intake & Output 02/11/18 02/12/18 02/12/18 18:59 06:59 18:59 Intake Total 700 240 Balance 700 240 Intake: Oral 700 240 Other: # Voids 3 1 # Bowel Movements 0 Active Medications: Current Medications Acetaminophen (Tylenol) 650 mg PO Q4HR PRN PRN Reason: Mild Pain / Temp above 100 Stop: 04/02/18 16:28 Al Hydrox/Mg Hydrox/Simethicone (Maalox) 30 ml PO Q4HR PRN PRN Reason: GI DISTRESS Stop: 04/02/18 16:28 Aripiprazole (Abilify) 5 mg PO HS AALIYAH PRN Reason: Protocol Stop: 04/11/18 08:59 Last Admin: 02/11/18 20:27 Dose: 5 mg Aspirin (Aspirin Chewable) 162 mg PO DAILY AALIYAH Stop: 04/03/18 08:59 Last Admin: 02/11/18 10:10 Dose: Not Given Escitalopram Oxalate (Lexapro) 20 mg PO DAILY AALIYAH PRN Reason: Protocol Stop: 04/11/18 08:59 Last Admin: 02/11/18 10:13 Dose: Not Given Insulin Aspart (Novolog Insulin Sliding Scale) 0 units SUBQ ACHS AALIYAH PRN Reason: Protocol Stop: 04/03/18 16:29 Last Admin: 02/12/18 06:34 Dose: Not Given Lisinopril (Zestril) 5 mg PO DAILY AALIYAH Stop: 04/04/18 08:59 Last Admin: 02/11/18 10:11 Dose: Not Given Lorazepam (Ativan) 0.5 mg PO Q4HR PRN; Protocol PRN Reason: Anxiety Stop: 03/03/18 16:28 Last Admin: 02/05/18 20:59 Dose: 0.5 mg Magnesium Hydroxide (Milk Of Magnesia) 30 ml PO HS PRN PRN Reason: Constipation Metformin HCl (Glucophage) 500 mg PO DAILY AALIYAH Stop: 04/04/18 08:59 Last Admin: 02/11/18 10:14 Dose: Not Given Multivitamins/Vitamin C (Theragran) 1 tab PO DAILY AALIYAH Stop: 04/03/18 08:59 Last Admin: 02/11/18 10:14 Dose: Not Given Simvastatin (Zocor) 10 mg PO HS AALIYAH PRN Reason: Protocol Stop: 04/03/18 20:59 Last Admin: 02/11/18 20:27 Dose: 10 mg Zolpidem Tartrate (Ambien) 5 mg PO HS PRN PRN Reason: Insomnia Stop: 04/02/18 16:28 Last Admin: 02/11/18 20:27 Dose: 5 mg General: Alert, No acute distress HEENT: Atraumatic, PERRLA, EOMI Neck: Supple Cardiovascular: Regular rate, Normal S1, Normal S2 Abdomen: Bowel sounds, Soft Extremities: no Clubbing, no Cyanosis, no Edema Neurological: Normal gait Assessment/Plan - Assessment Assessment: psychosis Type 2 Diabetes mellitus Chronic kidney Disorder Stage 3 h/o Coronary Artery Bypass Graft Hypertension Hyperlipidemia CAD Schizophrenia 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 Nutritional Asmnt/Malnutr-PDOC - Dietary Evaluation Malnutrition Findings (Please click <Entered> for more info): Nutritional Asmnt/Malnutrition Start: 02/07/18 14: 22 Text: Status: Complete Freq: Document 02/07/18 14:22 HENG (Rec: 02/07/18 14:31 [id number] [id number]) Nutritional Asmnt/Malnutrition Patient General Information Nutritional Screening Moderate Risk Diagnosis psychosis nos Pertinent Medical Hx/Surgical Hx DM2, CKD stage 3, CAD with CABG, schizophrenia, essential HTN, hyperlipidemia Subjective Information Pt seen sleeping in bed at time of visit. Spoke with RN, RN reported pt is paranoid, hearing voice telling her not to eat. Per COPY ROOM TECHNICIAN, pt refused eat/drink and medications. Per EMR, PO intake 20-25%. [facility] Diet [facility]/ [facility] Pertinent Medications novolog, glucophage, theragran Pertinent Labs 02/01-02/06 POC 83-129 Nutritional Hx/Data Height 1.68 m Height (Calculated Centimeters) 167.6 Current Weight (lbs) 79.832 kg Weight (Calculated Kilograms) 79.8 Weight (Calculated Grams) 93629.3 [place] Body Weight 136 Body Mass Index (BMI) 28.4 Weight Status Overweight GI Symptoms GI Symptoms None Last BM 02/06 Difficult in: None Skin Integrity/Comment: dryness Current %PO Negligible < 25% Estimated Nutritional Goals BEE in Kcals: Adj wt of IBW Calories/Kcals/Kg 23-27 Kcals Calculated 9636-8611 Protein: Adj wt of IBW Protein g/k Protein Calculated 80 Fluid: ml 1840-2160ml (1ml/kcal) Nutritional Problem 1. Problem Problem inadequate food intake Etiology mental status Signs/Symptoms: pt refusing to eat, PO intake 20-25% Malnutrition Alert Protein-Calorie Malnutrition N/A Is there a minimum of two criteria No selected? Query Text:Check all the applicable criteria. A minimum of two criteria are recommended for diagnosis of either severe or non-severe malnutrition. Intervention/Recommendation Comments 1. Consider regular diet for liberalization d/t low PO intake. MD to consider appetite stimulant. 2. Monitor PO intake, wt, labs and skin integrity 3. F/U as high risk in 2-3 dyas, 02/09-02/10 Expected Outcomes/Goals Expected Outcomes/Goals 1. PO intake to meet at least 75% of nutritional needs. 2. Wt stability, skin to remain intact, labs to approach WNL.
[2018-02-12] MEDS: Multivitamin Tab PO SCH ×2 (09:12→10:37)
[2018-02-12] MEDS: Aspirin 81mg Chewable Tab PO SCH ×2 (09:13→10:36)
--- NOTE | 2018-02-13 02:51 | Progress Notes ---
DATE: 02/12/2018 SUBJECTIVE: Staff was spoken to. The patient is interviewed. Mood is noted to be depressed. Affect is constricted. The patient's coping skills are noted to be poor. One minute the patient is stating that she cannot go home and she needs to go to a place and the next minute she says that she wants to stay in here. The patient's family came to visit the patient and they want the patient to be placed. The patient has been reluctant to go for any placement at this time. implementation manager has been working with the patient with regards to placement. ASSESSMENT: The patient is still depressed and psychotic. PLAN: To continue the patient with the supportive therapy and her current medications. I encouraged the patient to verbalize the concerns rather than to act out. JOB# [id number]
--- NOTE | 2018-02-13 05:01 | General Progress Note ---
Subjective - Review of Systems Service Date: 02/13/18 Subjective: Patient was awake, alert, afebrile. Still psychotic and depressed VS T96.9 P79 R20 BP 115/70 Objective - Results Recent Labs: Laboratory Last Values POC Glucose 99 MG/DL (70 - 105) 02/12/18 16:53 - Physical Exam Vitals and I&O: Vital Signs Temp 96.9 F 02/12/18 20:00 Pulse 79 02/12/18 20:00 Resp 20 02/12/18 20:00 BP 115/70 02/12/18 20:00 Pulse Ox 97 02/12/18 20:00 Intake & Output 02/12/18 02/12/18 02/13/18 06:59 18:59 06:59 Intake Total 240 480 Balance 240 480 Intake: Oral 240 480 Other: # Voids 1 2 Active Medications: Current Medications Acetaminophen (Tylenol) 650 mg PO Q4HR PRN PRN Reason: Mild Pain / Temp above 100 Stop: 04/02/18 16:28 Al Hydrox/Mg Hydrox/Simethicone (Maalox) 30 ml PO Q4HR PRN PRN Reason: GI DISTRESS Stop: 04/02/18 16:28 Aripiprazole (Abilify) 5 mg PO HS AALIYAH PRN Reason: Protocol Stop: 04/11/18 08:59 Last Admin: 02/12/18 20:53 Dose: Not Given Aspirin (Aspirin Chewable) 162 mg PO DAILY AALIYAH Stop: 04/03/18 08:59 Last Admin: 02/12/18 10:36 Dose: Not Given Escitalopram Oxalate (Lexapro) 20 mg PO DAILY AALIYAH PRN Reason: Protocol Stop: 04/11/18 08:59 Last Admin: 02/12/18 10:36 Dose: Not Given Insulin Aspart (Novolog Insulin Sliding Scale) 0 units SUBQ ACHS AALIYAH PRN Reason: Protocol Stop: 04/03/18 16:29 Last Admin: 02/12/18 20:53 Dose: Not Given Lisinopril (Zestril) 5 mg PO DAILY AALIYAH Stop: 04/04/18 08:59 Last Admin: 02/12/18 10:36 Dose: Not Given Lorazepam (Ativan) 0.5 mg PO Q4HR PRN; Protocol PRN Reason: Anxiety Stop: 03/03/18 16:28 Last Admin: 04/18/18 20:59 Dose: 0.5 mg Magnesium Hydroxide (Milk Of Magnesia) 30 ml PO HS PRN PRN Reason: Constipation Metformin HCl (Glucophage) 500 mg PO DAILY [facility] Stop: 04/04/18 08:59 Last Admin: 02/12/18 10:37 Dose: Not Given Multivitamins/Vitamin C (Theragran) 1 tab PO DAILY AALIYAH Stop: 04/03/18 08:59 Last Admin: 02/12/18 10:37 Dose: Not Given Simvastatin (Zocor) 10 mg PO HS AALIYAH PRN Reason: Protocol Stop: 04/03/18 20:59 Last Admin: 02/12/18 20:54 Dose: Not Given Zolpidem Tartrate (Ambien) 5 mg PO HS PRN PRN Reason: Insomnia Stop: 04/02/18 16:28 Last Admin: 02/11/18 20:27 Dose: 5 mg General: Alert, No acute distress HEENT: Atraumatic, PERRLA, EOMI Neck: Supple Cardiovascular: Regular rate, Normal S1, Normal S2 Abdomen: Bowel sounds, Soft Extremities: no Clubbing, no Cyanosis, no Edema Neurological: Normal gait Assessment/Plan - Assessment Assessment: psychosis Type 2 Diabetes mellitus Chronic kidney Disorder Stage 3 h/o Coronary Artery Bypass Graft Hypertension Hyperlipidemia CAD Schizophrenia 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 Nutritional Asmnt/Malnutr-PDOC - Dietary Evaluation Malnutrition Findings (Please click <Entered> for more info): Nutritional Asmnt/Malnutrition Start: 02/07/18 14: 22 Text: Status: Complete Freq: Document 02/07/18 14:22 LCHENG (Rec: 02/07/18 14:31 HEN [email or web address]) Nutritional Asmnt/Malnutrition Patient General Information Nutritional Screening Moderate Risk Diagnosis psychosis nos Pertinent Medical Hx/Surgical Hx DM2, CKD stage 3, CAD with CABG, schizophrenia, essential HTN, hyperlipidemia Subjective Information Pt seen sleeping in bed at time of visit. Spoke with RN, RN reported pt is paranoid, hearing voice telling her not to eat. Per PICKING SUPERVISOR, pt refused eat/drink and medications. Per EMR, PO intake 20-25%. Current Diet Order/ Nutrition Support [facility]-60gm Pertinent Medications novolog, glucophage, theragran Pertinent Labs 02/01-02/06 POC 83-129 Nutritional Hx/Data Height 1.68 m Height (Calculated Centimeters) 167.6 Current Weight (lbs) 79.832 kg Weight (Calculated Kilograms) 79.8 Weight (Calculated Grams) 33226.3 [place] Body Weight 136 Body Mass Index (BMI) 28.4 Weight Status Overweight GI Symptoms GI Symptoms None Last BM 02/06 Difficult in: None Skin Integrity/Comment: dryness Current %PO Negligible < 25% Estimated Nutritional Goals BEE in Kcals: Adj wt of IBW Calories/Kcals/Kg 23-27 Kcals Calculated 5009-3913 Protein: Adj wt of IBW Protein g/k Protein Calculated 80 Fluid: ml 1840-2160ml (1ml/kcal) Nutritional Problem 1. Problem Problem inadequate food intake Etiology mental status Signs/Symptoms: pt refusing to eat, PO intake 20-25% Malnutrition Alert Protein-Calorie Malnutrition N/A Is there a minimum of two criteria No selected? Query Text:Check all the applicable criteria. A minimum of two criteria are recommended for diagnosis of either severe or non-severe malnutrition. Intervention/Recommendation Comments 1. Consider regular diet for liberalization d/t low PO intake. MD to consider appetite stimulant. 2. Monitor PO intake, wt, labs and skin integrity 3. F/U as high risk in 2-3 dyas, 02/09-02/10 Expected Outcomes/Goals Expected Outcomes/Goals 1. PO intake to meet at least 75% of nutritional needs. 2. Wt stability, skin to remain intact, labs to approach WNL.
[2018-02-13] MEDS: INSULIN ASPART SLIDING SCALE 100 UNITS/ML UNIT SUBQ SCH ×4 (06:36→21:20)
[2018-02-13] MEDS: Aspirin 81mg Chewable Tab PO SCH (09:24)
[2018-02-13] MEDS: Multivitamin Tab PO SCH (09:24)
--- NOTE | 2018-02-14 02:52 | Progress Notes ---
DATE: 02/13/2018 SUBJECTIVE: Staff was spoken to. The patient is interviewed. Mood is noted to be irritable. Affect is constricted. The patient's insight and judgment at this time are noted to be very much impaired. Impulse control is noted to be limited. The patient has been having difficult time. The patient has been advised to go to a residential facility, but the patient is reluctant. The patient has mentioned that she cannot take care of herself at home. The patient has been stating that she wants to be here in the hospital rather than going anywhere else. The patient has no insight into her illness. ASSESSMENT: The patient is still depressed and psychotic. PLAN: To continue the patient with the supportive therapy and await for placement. JOB# [id number]
[2018-02-14] MEDS: INSULIN ASPART SLIDING SCALE 100 UNITS/ML UNIT SUBQ SCH ×4 (06:56→21:29)
--- NOTE | 2018-02-14 07:57 | General Progress Note ---
Subjective - Review of Systems Service Date: 02/14/18 Subjective: Patient was awake, alert, afebrile. Still psychotic and depressed VS T97.0 P70 R19 BP 122/68 Objective - Results Recent Labs: Laboratory Last Values POC Glucose 99 MG/DL (70 - 105) 02/12/18 16:53 - Physical Exam Vitals and I&O: Vital Signs Temp 97 F 02/14/18 06:22 Pulse 70 02/14/18 06:22 Resp 19 02/14/18 06:22 BP 122/68 02/14/18 06:22 Pulse Ox 97 02/14/18 06:22 Intake & Output 02/13/18 02/14/18 02/14/18 18:59 06:59 18:59 Intake Total 500 120 Balance 500 120 Intake: Oral 500 120 Other: # Voids 2 3 Active Medications: Current Medications Acetaminophen (Tylenol) 650 mg PO Q4HR PRN PRN Reason: Mild Pain / Temp above 100 Stop: 04/02/18 16:28 Al Hydrox/Mg Hydrox/Simethicone (Maalox) 30 ml PO Q4HR PRN PRN Reason: GI DISTRESS Stop: 04/02/18 16:28 Aripiprazole (Abilify) 5 mg PO HS AALIYAH PRN Reason: Protocol Stop: 04/11/18 08:59 Last Admin: 02/13/18 21:19 Dose: Not Given Aspirin (Aspirin Chewable) 162 mg PO DAILY AALIYAH Stop: 04/03/18 08:59 Last Admin: 02/13/18 09:24 Dose: Not Given Escitalopram Oxalate (Lexapro) 20 mg PO DAILY AALIYAH PRN Reason: Protocol Stop: 04/11/18 08:59 Last Admin: 02/13/18 09:24 Dose: Not Given Insulin Aspart (Novolog Insulin Sliding Scale) 0 units SUBQ ACHS AALIYAH PRN Reason: Protocol Stop: 04/03/18 16:29 Last Admin: 02/14/18 06:56 Dose: Not Given Lisinopril (Zestril) 5 mg PO DAILY AALIYAH Stop: 04/04/18 08:59 Last Admin: 02/13/18 09:24 Dose: Not Given Lorazepam (Ativan) 0.5 mg PO Q4HR PRN; Protocol PRN Reason: Anxiety Stop: 03/03/18 16:28 Last Admin: 02/05/18 20:59 Dose: 0.5 mg Magnesium Hydroxide (Milk Of Magnesia) 30 ml PO HS PRN PRN Reason: Constipation Metformin HCl (Glucophage) 500 mg PO DAILY [facility] Stop: 04/04/18 08:59 Last Admin: 02/13/18 09:24 Dose: Not Given Multivitamins/Vitamin C (Theragran) 1 tab PO DAILY AALIYAH Stop: 04/03/18 08:59 Last Admin: 02/13/18 09:24 Dose: Not Given Simvastatin (Zocor) 10 mg PO HS AALIYAH PRN Reason: Protocol Stop: 04/03/18 20:59 Last Admin: 02/13/18 21:20 Dose: Not Given Zolpidem Tartrate (Ambien) 5 mg PO HS PRN PRN Reason: Insomnia Stop: 04/02/18 16:28 Last Admin: 02/11/18 20:27 Dose: 5 mg General: Alert, No acute distress HEENT: Atraumatic, PERRLA, EOMI Neck: Supple Cardiovascular: Regular rate, Normal S1, Normal S2 Abdomen: Bowel sounds, Soft Extremities: no Clubbing, no Cyanosis, no Edema Neurological: Normal gait Assessment/Plan - Assessment Assessment: psychosis Type 2 Diabetes mellitus Chronic kidney Disorder Stage 3 h/o Coronary Artery Bypass Graft Hypertension Hyperlipidemia CAD Schizophrenia 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 Nutritional Asmnt/Malnutr-PDOC - Dietary Evaluation Malnutrition Findings (Please click <Entered> for more info): Nutritional Asmnt/Malnutrition Start: 02/07/18 14: 22 Text: Status: Complete Freq: Document 02/07/18 14:22 [facility] (Rec: 02/07/18 14:31 [facility] [id number]) Nutritional Asmnt/Malnutrition Patient General Information Nutritional Screening Moderate Risk Diagnosis psychosis nos Pertinent Medical Hx/Surgical Hx DM2, CKD stage 3, CAD with CABG, schizophrenia, essential HTN, hyperlipidemia Subjective Information Pt seen sleeping in bed at time of visit. Spoke with RN, RN reported pt is paranoid, hearing voice telling her not to eat. Per PACKING AND WRAPPING SUPERVISOR, pt refused eat/drink and medications. Per EMR, PO intake 20-25%. Current Diet Order/ Nutrition Support [facility]-60gm Pertinent Medications novolog, glucophage, theragran Pertinent Labs 02/01-02/06 POC 83-129 Nutritional Hx/Data Height 1.68 m Height (Calculated Centimeters) 167.6 Current Weight (lbs) 79.832 kg Weight (Calculated Kilograms) 79.8 Weight (Calculated Grams) 58371.3 [place] Body Weight 136 Body Mass Index (BMI) 28.4 Weight Status Overweight GI Symptoms GI Symptoms None Last BM 02/06 Difficult in: None Skin Integrity/Comment: dryness Current %PO Negligible < 25% Estimated Nutritional Goals BEE in Kcals: Adj wt of IBW Calories/Kcals/Kg 23-27 Kcals Calculated 4637-4151 Protein: Adj wt of IBW Protein g/k Protein Calculated 80 Fluid: ml 1840-2160ml (1ml/kcal) Nutritional Problem 1. Problem Problem inadequate food intake Etiology mental status Signs/Symptoms: pt refusing to eat, PO intake 20-25% Malnutrition Alert Protein-Calorie Malnutrition N/A Is there a minimum of two criteria No selected? Query Text:Check all the applicable criteria. A minimum of two criteria are recommended for diagnosis of either severe or non-severe malnutrition. Intervention/Recommendation Comments 1. Consider regular diet for liberalization d/t low PO intake. MD to consider appetite stimulant. 2. Monitor PO intake, wt, labs and skin integrity 3. F/U as high risk in 2-3 dyas, 02/09-02/10 Expected Outcomes/Goals Expected Outcomes/Goals 1. PO intake to meet at least 75% of nutritional needs. 2. Wt stability, skin to remain intact, labs to approach WNL.
[2018-02-14] MEDS: Multivitamin Tab PO SCH (08:37)
[2018-02-14] MEDS: Aspirin 81mg Chewable Tab PO SCH (08:37)
--- NOTE | 2018-02-15 00:33 | Progress Notes ---
DATE: 02/14/2018 SUBJECTIVE: Staff was spoken to. The patient is interviewed. Mood is noted to be irritable. Affect is constricted. Insight and judgment are noted to be still impaired. Impulse control seems to be limited. The patient has been having difficult time to cope with the stress. No side effects to the medications are noted. Continues to be resisting to take the medications. The patient is still depressed and paranoid. The patient has been advised to go for a placement, but the patient has been reluctant. No side effects to the medications are noted at this time. ASSESSMENT: The patient is still depressed and psychotic. PLAN: To continue the patient with the supportive therapy and followup. The patient is currently on ____ 20 mg . The patient has been placed on the Abilify 5 mg. The patient is going to be closely monitored with these medications and followed up. JOB# [id number]
--- NOTE | 2018-02-15 05:20 | General Progress Note ---
Subjective - Review of Systems Service Date: 02/15/18 Subjective: Patient was awake, alert, afebrile. Still psychotic and depressed VS T97.2 P78 R19 BP 120/66 Objective - Results Recent Labs: Laboratory Last Values POC Glucose 190 MG/DL (70 - 105) H 02/14/18 21:26 - Physical Exam Vitals and I&O: Vital Signs Temp 97.2 F 02/14/18 20:00 Pulse 78 02/14/18 20:00 Resp 20 02/14/18 20:00 BP 120/66 02/14/18 20:00 Pulse Ox 100 02/14/18 20:00 Intake & Output 02/14/18 02/14/18 02/15/18 06:59 18:59 06:59 Intake Total 120 600 840 Balance 120 600 840 Intake: Oral 120 600 840 Other: # Voids 3 2 1 Active Medications: Current Medications Acetaminophen (Tylenol) 650 mg PO Q4HR PRN PRN Reason: Mild Pain / Temp above 100 Stop: 04/02/18 16:28 Al Hydrox/Mg Hydrox/Simethicone (Maalox) 30 ml PO Q4HR PRN PRN Reason: GI DISTRESS Stop: 04/02/18 16:28 Aripiprazole (Abilify) 5 mg PO HS AALIYAH PRN Reason: Protocol Stop: 04/11/18 08:59 Last Admin: 02/14/18 20:59 Dose: 5 mg Aspirin (Aspirin Chewable) 162 mg PO DAILY AALIYAH Stop: 04/03/18 08:59 Last Admin: 02/14/18 08:37 Dose: Not Given Escitalopram Oxalate (Lexapro) 20 mg PO DAILY AALIYAH PRN Reason: Protocol Stop: 04/11/18 08:59 Last Admin: 02/14/18 08:37 Dose: Not Given Insulin Aspart (Novolog Insulin Sliding Scale) 0 units SUBQ ACHS AALIYAH PRN Reason: Protocol Stop: 04/03/18 16:29 Last Admin: 02/14/18 21:29 Dose: 2 units Lisinopril (Zestril) 5 mg PO DAILY AALIYAH Stop: 04/04/18 08:59 Last Admin: 02/14/18 08:37 Dose: Not Given Lorazepam (Ativan) 0.5 mg PO Q4HR PRN; Protocol PRN Reason: Anxiety Stop: 03/03/18 16:28 Last Admin: 02/05/18 20:59 Dose: 0.5 mg Magnesium Hydroxide (Milk Of Magnesia) 30 ml PO HS PRN PRN Reason: Constipation Metformin HCl (Glucophage) 500 mg PO DAILY AALIYAH Stop: 04/04/18 08:59 Last Admin: 02/14/18 08:37 Dose: Not Given Multivitamins/Vitamin C (Theragran) 1 tab PO DAILY AALIYAH Stop: 04/03/18 08:59 Last Admin: 02/14/18 08:37 Dose: Not Given Simvastatin (Zocor) 10 mg PO HS AALIYAH PRN Reason: Protocol Stop: 04/03/18 20:59 Last Admin: 02/14/18 20:59 Dose: 10 mg Zolpidem Tartrate (Ambien) 5 mg PO HS PRN PRN Reason: Insomnia Stop: 04/02/18 16:28 Last Admin: 02/14/18 20:59 Dose: 5 mg General: Alert, No acute distress HEENT: Atraumatic, PERRLA, EOMI Neck: Supple Cardiovascular: Regular rate, Normal S1, Normal S2 Abdomen: Bowel sounds, Soft Extremities: no Clubbing, no Cyanosis, no Edema Neurological: Normal gait Assessment/Plan - Assessment Assessment: psychosis Type 2 Diabetes mellitus Chronic kidney Disorder Stage 3 h/o Coronary Artery Bypass Graft Hypertension Hyperlipidemia CAD Schizophrenia 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 Nutritional Asmnt/Malnutr-PDOC - Dietary Evaluation Malnutrition Findings (Please click <Entered> for more info): Nutritional Asmnt/Malnutrition Start: 02/07/18 14: 22 Text: Status: Complete Freq: Document 02/07/18 14:22 L[facility] (Rec: 02/07/18 14:31 LCHENG [id number]) Nutritional Asmnt/Malnutrition Patient General Information Nutritional Screening Moderate Risk Diagnosis psychosis nos Pertinent Medical Hx/Surgical Hx DM2, CKD stage 3, CAD with CABG, schizophrenia, essential HTN, hyperlipidemia Subjective Information Pt seen sleeping in bed at time of visit. Spoke with RN, RN reported pt is paranoid, hearing voice telling her not to eat. Per SOFT WATER MECHANIC, pt refused eat/drink and medications. Per EMR, PO intake 20-25%. [facility] Pertinent Medications novolog, glucophage, theragran Pertinent Labs 02/01-02/06 POC 83-129 Nutritional Hx/Data Height 1.68 m Height (Calculated Centimeters) 167.6 Current Weight (lbs) 79.832 kg Weight (Calculated Kilograms) 79.8 Weight (Calculated Grams) 40134.3 [place] Body Weight 136 Body Mass Index (BMI) 28.4 Weight Status Overweight GI Symptoms GI Symptoms None Last BM 02/06 Difficult in: None Skin Integrity/Comment: dryness Current %PO Negligible < 25% Estimated Nutritional Goals BEE in Kcals: Adj wt of IBW Calories/Kcals/Kg 23-27 Kcals Calculated 9140-3063 Protein: Adj wt of IBW Protein g/k Protein Calculated 80 Fluid: ml 1840-2160ml (1ml/kcal) Nutritional Problem 1. Problem Problem inadequate food intake Etiology mental status Signs/Symptoms: pt refusing to eat, PO intake 20-25% Malnutrition Alert Protein-Calorie Malnutrition N/A Is there a minimum of two criteria No selected? Query Text:Check all the applicable criteria. A minimum of two criteria are recommended for diagnosis of either severe or non-severe malnutrition. Intervention/Recommendation Comments 1. Consider regular diet for liberalization d/t low PO intake. MD to consider appetite stimulant. 2. Monitor PO intake, wt, labs and skin integrity 3. F/U as high risk in 2-3 dyas, 02/09-02/10 Expected Outcomes/Goals Expected Outcomes/Goals 1. PO intake to meet at least 75% of nutritional needs. 2. Wt stability, skin to remain intact, labs to approach WNL.
--- NOTE | 2018-02-15 05:22 | General Progress Note ---
Subjective - Review of Systems Service Date: 02/15/18 Subjective: Patient was awake, alert, afebrile. Still psychotic and depressed VS T97.0 P70 R19 BP 122/68 Objective - Results Recent Labs: Laboratory Last Values POC Glucose 190 MG/DL (70 - 105) H 02/14/18 21:26 - Physical Exam Vitals and I&O: Vital Signs Temp 97.2 F 02/14/18 20:00 Pulse 78 02/14/18 20:00 Resp 20 02/14/18 20:00 BP 120/66 02/14/18 20:00 Pulse Ox 100 02/14/18 20:00 Intake & Output 02/14/18 02/14/18 02/15/18 06:59 18:59 06:59 Intake Total 120 600 840 Balance 120 600 840 Intake: Oral 120 600 840 Other: # Voids 3 2 1 Active Medications: Current Medications Acetaminophen (Tylenol) 650 mg PO Q4HR PRN PRN Reason: Mild Pain / Temp above 100 Stop: 04/02/18 16:28 Al Hydrox/Mg Hydrox/Simethicone (Maalox) 30 ml PO Q4HR PRN PRN Reason: GI DISTRESS Stop: 04/02/18 16:28 Aripiprazole (Abilify) 5 mg PO HS AALIYAH PRN Reason: Protocol Stop: 04/11/18 08:59 Last Admin: 02/14/18 20:59 Dose: 5 mg Aspirin (Aspirin Chewable) 162 mg PO DAILY AALIYAH Stop: 04/03/18 08:59 Last Admin: 02/14/18 08:37 Dose: Not Given Escitalopram Oxalate (Lexapro) 20 mg PO DAILY AALIYAH PRN Reason: Protocol Stop: 04/11/18 08:59 Last Admin: 02/14/18 08:37 Dose: Not Given Insulin Aspart (Novolog Insulin Sliding Scale) 0 units SUBQ ACHS AALIYAH PRN Reason: Protocol Stop: 04/03/18 16:29 Last Admin: 02/14/18 21:29 Dose: 2 units Lisinopril (Zestril) 5 mg PO DAILY AALIYAH Stop: 04/04/18 08:59 Last Admin: 02/14/18 08:37 Dose: Not Given Lorazepam (Ativan) 0.5 mg PO Q4HR PRN; Protocol PRN Reason: Anxiety Stop: 03/03/18 16:28 Last Admin: 02/05/18 20:59 Dose: 0.5 mg Magnesium Hydroxide (Milk Of Magnesia) 30 ml PO HS PRN PRN Reason: Constipation Metformin HCl (Glucophage) 500 mg PO DAILY AALIYAH Stop: 04/04/18 08:59 Last Admin: 02/14/18 08:37 Dose: Not Given Multivitamins/Vitamin C (Theragran) 1 tab PO DAILY AALIYAH Stop: 04/03/18 08:59 Last Admin: 02/14/18 08:37 Dose: Not Given Simvastatin (Zocor) 10 mg PO HS AALIYAH PRN Reason: Protocol Stop: 04/03/18 20:59 Last Admin: 02/14/18 20:59 Dose: 10 mg Zolpidem Tartrate (Ambien) 5 mg PO HS PRN PRN Reason: Insomnia Stop: 04/02/18 16:28 Last Admin: 02/14/18 20:59 Dose: 5 mg General: Alert, No acute distress HEENT: Atraumatic, PERRLA, EOMI Neck: Supple Cardiovascular: Regular rate, Normal S1, Normal S2 Abdomen: Bowel sounds, Soft Extremities: no Clubbing, no Cyanosis, no Edema Neurological: Normal gait Assessment/Plan - Assessment Assessment: psychosis Type 2 Diabetes mellitus Chronic kidney Disorder Stage 3 h/o Coronary Artery Bypass Graft Hypertension Hyperlipidemia CAD Schizophrenia 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 Nutritional Asmnt/Malnutr-PDOC - Dietary Evaluation Malnutrition Findings (Please click <Entered> for more info): Nutritional Asmnt/Malnutrition Start: 02/07/18 14: 22 Text: Status: Complete Freq: Document 02/07/18 14:22 HENG (Rec: 02/07/18 14:31 HENG [email or web address]) Nutritional Asmnt/Malnutrition Patient General Information Nutritional Screening Moderate Risk Diagnosis psychosis nos Pertinent Medical Hx/Surgical Hx DM2, CKD stage 3, CAD with CABG, schizophrenia, essential HTN, hyperlipidemia Subjective Information Pt seen sleeping in bed at time of visit. Spoke with RN, RN reported pt is paranoid, hearing voice telling her not to eat. Per REBEAMER, pt refused eat/drink and medications. Per EMR, PO intake 20-25%. Current Diet [facility] Pertinent Medications novolog, glucophage, theragran Pertinent Labs 02/01-02/06 POC 83-129 Nutritional Hx/Data Height 1.68 m Height (Calculated Centimeters) 167.6 Current Weight (lbs) 79.832 kg Weight (Calculated Kilograms) 79.8 Weight (Calculated Grams) 85498.3 [place] Body Weight 136 Body Mass Index (BMI) 28.4 Weight Status Overweight GI Symptoms GI Symptoms None Last BM 02/06 Difficult in: None Skin Integrity/Comment: dryness Current %PO Negligible < 25% Estimated Nutritional Goals BEE in Kcals: Adj wt of IBW Calories/Kcals/Kg 23-27 Kcals Calculated 4042-0478 Protein: Adj wt of IBW Protein g/k Protein Calculated 80 Fluid: ml 1840-2160ml (1ml/kcal) Nutritional Problem 1. Problem Problem inadequate food intake Etiology mental status Signs/Symptoms: pt refusing to eat, PO intake 20-25% Malnutrition Alert Protein-Calorie Malnutrition N/A Is there a minimum of two criteria No selected? Query Text:Check all the applicable criteria. A minimum of two criteria are recommended for diagnosis of either severe or non-severe malnutrition. Intervention/Recommendation Comments 1. Consider regular diet for liberalization d/t low PO intake. MD to consider appetite stimulant. 2. Monitor PO intake, wt, labs and skin integrity 3. F/U as high risk in 2-3 dyas, 02/09-02/10 Expected Outcomes/Goals Expected Outcomes/Goals 1. PO intake to meet at least 75% of nutritional needs. 2. Wt stability, skin to remain intact, labs to approach WNL.
[2018-02-15] MEDS: INSULIN ASPART SLIDING SCALE 100 UNITS/ML UNIT SUBQ SCH ×4 (06:38→20:19)
[2018-02-15] MEDS: Multivitamin Tab PO SCH (09:32)
[2018-02-15] MEDS: Aspirin 81mg Chewable Tab PO SCH (09:32)
--- NOTE | 2018-02-15 18:47 | Progress Notes ---
DATE: 02/15/2018 SUBJECTIVE: Staff was spoken to. The patient is interviewed. Mood is noted to be irritable. Affect is constricted. The patient is stating that she does not need to go anyplace. She needs to be here only. The patient's family has been willing for the patient to be placed in the [facility] facility. The patient at this time has been reluctant. The patient is currently on the citalopram and Abilify and has been able to tolerate the medications. No side effects to the medications are noted. The patient still has paranoia, but denies any command hallucinations. ASSESSMENT: The patient's depression is resolving, but patient is reluctant to go to the [facility] facility. PLAN: To continue the patient with the supportive therapy and followup. JOB# [id number]
--- NOTE | 2018-02-16 05:34 | General Progress Note ---
Subjective - Review of Systems Service Date: 02/16/18 Subjective: Patient is awake, alert. VS T96.8 P81 R19 BP 121/70 Objective - Results Recent Labs: Laboratory Last Values POC Glucose 117 MG/DL (70 - 105) H 02/15/18 20:13 - Physical Exam Vitals and I&O: Vital Signs Temp 96.8 F 02/15/18 20:36 Pulse 81 02/15/18 20:36 Resp 19 02/15/18 20:36 BP 121/70 02/15/18 20:36 Pulse Ox 99 02/15/18 20:36 Intake & Output 02/15/18 02/15/18 02/16/18 06:59 18:59 06:59 Intake Total 1080 1050 120 Balance 1080 1050 120 Intake: Oral 1080 1050 120 Other: # Voids 2 2 1 # Bowel Movements 0 Active Medications: Current Medications Acetaminophen (Tylenol) 650 mg PO Q4HR PRN PRN Reason: Mild Pain / Temp above 100 Stop: 04/02/18 16:28 Al Hydrox/Mg Hydrox/Simethicone (Maalox) 30 ml PO Q4HR PRN PRN Reason: GI DISTRESS Stop: 04/02/18 16:28 Aripiprazole (Abilify) 5 mg PO HS AALIYAH PRN Reason: Protocol Stop: 04/11/18 08:59 Last Admin: 02/15/18 20:20 Dose: 5 mg Aspirin (Aspirin Chewable) 162 mg PO DAILY AALIYAH Stop: 04/03/18 08:59 Last Admin: 02/15/18 09:32 Dose: 162 mg Escitalopram Oxalate (Lexapro) 20 mg PO DAILY AALIYAH PRN Reason: Protocol Stop: 04/11/18 08:59 Last Admin: 02/15/18 09:32 Dose: 20 mg Insulin Aspart (Novolog Insulin Sliding Scale) 0 units SUBQ ACHS AALIYAH PRN Reason: Protocol Stop: 04/03/18 16:29 Last Admin: 02/15/18 20:19 Dose: Not Given Lisinopril (Zestril) 5 mg PO DAILY AALIYAH Stop: 04/04/18 08:59 Last Admin: 02/15/18 09:31 Dose: 5 mg Lorazepam (Ativan) 0.5 mg PO Q4HR PRN; Protocol PRN Reason: Anxiety Stop: 03/03/18 16:28 Last Admin: 02/05/18 20:59 Dose: 0.5 mg Magnesium Hydroxide (Milk Of Magnesia) 30 ml PO HS PRN PRN Reason: Constipation Metformin HCl (Glucophage) 500 mg PO DAILY AALIYAH Stop: 04/04/18 08:59 Last Admin: 02/15/18 09:32 Dose: 500 mg Multivitamins/Vitamin C (Theragran) 1 tab PO DAILY AALIYAH Stop: 04/03/18 08:59 Last Admin: 02/15/18 09:32 Dose: 1 tab Simvastatin (Zocor) 10 mg PO HS AALIYAH PRN Reason: Protocol Stop: 04/03/18 20:59 Last Admin: 02/15/18 20:21 Dose: 10 mg Zolpidem Tartrate (Ambien) 5 mg PO HS PRN PRN Reason: Insomnia Stop: 04/02/18 16:28 Last Admin: 02/14/18 20:59 Dose: 5 mg General: Alert, No acute distress HEENT: Atraumatic, PERRLA, EOMI Neck: Supple Cardiovascular: Regular rate, Normal S1, Normal S2 Abdomen: Bowel sounds, Soft Extremities: no Clubbing, no Cyanosis, no Edema Neurological: Normal gait Assessment/Plan - Assessment Assessment: psychosis Type 2 Diabetes mellitus Chronic kidney Disorder Stage 3 h/o Coronary Artery Bypass Graft Hypertension Hyperlipidemia CAD Schizophrenia 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 - Plan Plan: continue current treatment Nutritional Asmnt/Malnutr-PDOC - Dietary Evaluation Malnutrition Findings (Please click <Entered> for more info): Nutritional Asmnt/Malnutrition Start: 02/07/18 14: 22 Text: Status: Complete Freq: Document 02/07/18 14:22 FRANKY (Rec: 02/07/18 14:31 [email or web address] Nutritional Asmnt/Malnutrition Patient General Information Nutritional Screening Moderate Risk Diagnosis psychosis nos Pertinent Medical Hx/Surgical Hx DM2, CKD stage 3, CAD with CABG, schizophrenia, essential HTN, hyperlipidemia Subjective Information Pt seen sleeping in bed at time of visit. Spoke with RN, RN reported pt is paranoid, hearing voice telling her not to eat. Per SERVICES COORDINATOR, pt refused eat/drink and medications. Per EMR, PO intake 20-25%. Current Diet Order/ Nutrition Support [facility]-60gm Pertinent Medications novolog, glucophage, theragran Pertinent Labs 02/01-02/06 POC 83-129 Nutritional Hx/Data Height 1.68 m Height (Calculated Centimeters) 167.6 Current Weight (lbs) 79.832 kg Weight (Calculated Kilograms) 79.8 Weight (Calculated Grams) 08592.3 [place] Body Weight 136 Body Mass Index (BMI) 28.4 Weight Status Overweight GI Symptoms GI Symptoms None Last BM 02/06 Difficult in: None Skin Integrity/Comment: dryness Current %PO Negligible < 25% Estimated Nutritional Goals BEE in Kcals: Adj wt of IBW Calories/Kcals/Kg 23-27 Kcals Calculated 7902-3745 Protein: Adj wt of IBW Protein g/k Protein Calculated 80 Fluid: ml 1840-2160ml (1ml/kcal) Nutritional Problem 1. Problem Problem inadequate food intake Etiology mental status Signs/Symptoms: pt refusing to eat, PO intake 20-25% Malnutrition Alert Protein-Calorie Malnutrition N/A Is there a minimum of two criteria No selected? Query Text:Check all the applicable criteria. A minimum of two criteria are recommended for diagnosis of either severe or non-severe malnutrition. Intervention/Recommendation Comments 1. Consider regular diet for liberalization d/t low PO intake. MD to consider appetite stimulant. 2. Monitor PO intake, wt, labs and skin integrity 3. F/U as high risk in 2-3 dyas, 02/09-02/10 Expected Outcomes/Goals Expected Outcomes/Goals 1. PO intake to meet at least 75% of nutritional needs. 2. Wt stability, skin to remain intact, labs to approach WNL.
[2018-02-16] MEDS: INSULIN ASPART SLIDING SCALE 100 UNITS/ML UNIT SUBQ SCH ×4 (06:44→20:11)
[2018-02-16] MEDS: Multivitamin Tab PO SCH (09:05)
[2018-02-16] MEDS: Aspirin 81mg Chewable Tab PO SCH (09:05)
--- NOTE | 2018-02-16 21:55 | Progress Notes ---
DATE: 02/16/2018 SUBJECTIVE: Staff was spoken to. The patient is interviewed. Mood is noted to be irritable. Affect is constricted. Insight and judgment are noted to be still impaired. The patient continues to be depressed and paranoid. The patient is reluctant to comply with the medications. The patient is stating that there is no reason for her to be in here and she needs to be taken care of over here. She does not want to go to any [facility] facility. The patient has been not willing to take care of her. ASSESSMENT: The patient is still impulsive but is not threatening to harm self or others. PLAN: Continue the patient with the current medications and await for placement. [facility]# [id number]
[2018-02-17] MEDS: INSULIN ASPART SLIDING SCALE 100 UNITS/ML UNIT SUBQ SCH (06:57)
--- NOTE | 2018-02-17 08:12 | General Progress Note ---
Subjective - Review of Systems Service Date: 02/17/18 Subjective: Patient is awake, alert. VS T97.2 P81 R20 BP 129/78 Objective - Results Recent Labs: Laboratory Last Values POC Glucose 153 MG/DL (70 - 105) H 02/16/18 20:07 - Physical Exam Vitals and I&O: Vital Signs Temp 97.2 F 02/17/18 06:16 Pulse 81 02/17/18 06:16 Resp 20 02/17/18 06:16 BP 129/78 02/17/18 06:16 Pulse Ox 96 02/17/18 06:16 Intake & Output 02/16/18 02/17/18 02/17/18 18:59 06:59 18:59 Intake Total 850 240 Output Total 1 Balance 850 239 Intake: Oral 850 240 Output: Urine 1 Other: # Voids 4 1 # Bowel Movements 1 1 Active Medications: Current Medications Acetaminophen (Tylenol) 650 mg PO Q4HR PRN PRN Reason: Mild Pain / Temp above 100 Stop: 04/02/18 16:28 Al Hydrox/Mg Hydrox/Simethicone (Maalox) 30 ml PO Q4HR PRN PRN Reason: GI DISTRESS Stop: 04/02/18 16:28 Last Admin: 02/16/18 10:02 Dose: 30 ml Aripiprazole (Abilify) 5 mg PO HS AALIYAH PRN Reason: Protocol Stop: 04/11/18 08:59 Last Admin: 02/16/18 20:04 Dose: 5 mg Aspirin (Aspirin Chewable) 162 mg PO DAILY [facility] Stop: 04/03/18 08:59 Last Admin: 02/16/18 09:05 Dose: 162 mg Escitalopram Oxalate (Lexapro) 20 mg PO DAILY AALIYAH PRN Reason: Protocol Stop: 04/11/18 08:59 Last Admin: 02/16/18 09:04 Dose: 20 mg Insulin Aspart (Novolog Insulin Sliding Scale) 0 units SUBQ ACHS AALIYAH PRN Reason: Protocol Stop: 04/03/18 16:29 Last Admin: 02/17/18 06:57 Dose: Not Given Lisinopril (Zestril) 5 mg PO DAILY [facility] Stop: 04/04/18 08:59 Last Admin: 02/16/18 09:05 Dose: 5 mg Lorazepam (Ativan) 0.5 mg PO Q4HR PRN; Protocol PRN Reason: Anxiety Stop: 03/03/18 16:28 Last Admin: 02/05/18 20:59 Dose: 0.5 mg Magnesium Hydroxide (Milk Of Magnesia) 30 ml PO HS PRN PRN Reason: Constipation Metformin HCl (Glucophage) 500 mg PO DAILY AALIYAH Stop: 04/04/18 08:59 Last Admin: 02/16/18 09:05 Dose: 500 mg Multivitamins/Vitamin C (Theragran) 1 tab PO DAILY AALIYAH Stop: 04/03/18 08:59 Last Admin: 02/16/18 09:05 Dose: 1 tab Simvastatin (Zocor) 10 mg PO HS AALIYAH PRN Reason: Protocol Stop: 04/03/18 20:59 Last Admin: 02/16/18 20:04 Dose: 10 mg Zolpidem Tartrate (Ambien) 5 mg PO HS PRN PRN Reason: Insomnia Stop: 04/02/18 16:28 Last Admin: 02/14/18 20:59 Dose: 5 mg General: Alert, No acute distress HEENT: Atraumatic, PERRLA, EOMI Neck: Supple Cardiovascular: Regular rate, Normal S1, Normal S2 Abdomen: Bowel sounds, Soft Extremities: no Clubbing, no Cyanosis, no Edema Neurological: Normal gait Assessment/Plan - Assessment Assessment: psychosis Type 2 Diabetes mellitus Chronic kidney Disorder Stage 3 h/o Coronary Artery Bypass Graft Hypertension Hyperlipidemia CAD Schizophrenia 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 Spoke with RN, RN reported pt is paranoid, hearing voice telling her not to eat. Per CONVENTIONAL MORTGAGE UNDERWRITER, pt refused eat/drink and medications. Per EMR, PO intake 20-25%. [facility] Pertinent Medications novolog, glucophage, theragran Pertinent Labs 02/01-02/06 POC 83-129 Nutritional Hx/Data Height 1.68 m Height (Calculated Centimeters) 167.6 Current Weight (lbs) 79.832 kg Weight (Calculated Kilograms) 79.8 Weight (Calculated Grams) 45089.3 [place] Body Weight 136 Body Mass Index (BMI) 28.4 Weight Status Overweight GI Symptoms GI Symptoms None Last BM 02/06 Difficult in: None Skin Integrity/Comment: dryness Current %PO Negligible < 25% Estimated Nutritional Goals BEE in Kcals: Adj wt of IBW Calories/Kcals/Kg 23-27 Kcals Calculated 3327-6115 Protein: Adj wt of IBW Protein g/k Protein Calculated 80 Fluid: ml 1840-2160ml (1ml/kcal) Nutritional Problem 1. Problem Problem inadequate food intake Etiology mental status Signs/Symptoms: pt refusing to eat, PO intake 20-25% Malnutrition Alert Protein-Calorie Malnutrition N/A Is there a minimum of two criteria No selected? Query Text:Check all the applicable criteria. A minimum of two criteria are recommended for diagnosis of either severe or non-severe malnutrition. Intervention/Recommendation Comments 1. Consider regular diet for liberalization d/t low PO intake. MD to consider appetite stimulant. 2. Monitor PO intake, wt, labs and skin integrity 3. F/U as high risk in 2-3 dyas, 02/09-02/10 Expected Outcomes/Goals Expected Outcomes/Goals 1. PO intake to meet at least 75% of nutritional needs. 2. Wt stability, skin to remain intact, labs to approach WNL.
[2018-02-17] MEDS: Aspirin 81mg Chewable Tab PO SCH (10:47)
[2018-02-17] MEDS: Multivitamin Tab PO SCH (10:48)
--- NOTE | 2018-02-17 20:15 | Discharge Summary ---
DATE OF DISCHARGE: 02/17/2018 IDENTIFYING DATA: The patient is a 57-year-old -[place] woman, , living with her . JUSTIFICATION OF HOSPITALIZATION: The patient admitted to being gravely disabled and a danger to self. CHIEF COMPLAINT: "I do not know, my is taking care of me." DIAGNOSES AT THE TIME OF ADMISSION: AXIS I: Schizophrenia, chronic paranoid type; rule out schizoaffective disorder. AXIS II: None. AXIS III: Diabetes mellitus, hypertension, chronic kidney disease, coronary artery bypass graft, hyperlipidemia, and essential hypertension. HOSPITAL COURSE AND RESPONSE TO TREATMENT: Please refer to the 02/02/2018 dictation done by me for history of present illness, physical examination, has been significant for hypertension, diabetes mellitus, chronic kidney disease, CABG, and hyperlipidemia. Lab studies during the hospitalization have been reviewed and they are noted to be within normal limits. No major intervention was needed. HOSPITAL COURSE AND RESPONSE TO TREATMENT: The patient has been observed on inpatient unit, provided with supportive psychotherapy. The patient has been closely monitored and we encouraged to participate in the groups and verbalize the concerns. The patient has been placed on aripiprazole 5 mg and the patient also has been placed with the escitalopram, which was increased to 20 mg, with these medications, the patient has been observed, the patient's psychosis started to resolve and the patient's depression also has significantly improved and the patient has been finally discharged on 02/17/2018, with recommendation that she is going to be seeking treatment on an outpatient basis. MENTAL STATUS EXAMINATION: At the time of the discharge, the patient's mood is noted to be anxious. Affect is appropriate. Not suicidal or homicidal. Insight and judgment are little fair. Impulse control is noted to be improving. No side effects to the medications are noted. Since the patient's is not able to care for the patient, the patient was discharged to a [facility] facility. DIAGNOSES AT THE TIME OF DISCHARGE: AXIS I: Schizoaffective disorder. AXIS II: None. AXIS III: Diabetes mellitus, hypertension, coronary artery disease, and chronic kidney disease. AFTERCARE PLAN: The patient is discharged to special care hospital to be followed up on an outpatient basis. JOB# [id number]
== END 2018-02-17 14:30 | DRG 885 ==
LOC: GERO2 15:30 → GERO 02-03 22:00
PROVIDERS: ADMIT Psychiatry & Neurology Psychiatry; ATTEND Psychiatry & Neurology Psychiatry
DX: F25.9 Schizoaffective disorder, unspecified (principal); N18.3 Chronic kidney disease, stage 3 (moderate); Z95.1 Presence of aortocoronary bypass graft; E78.5 Hyperlipidemia, unspecified; I12.9 Hypertensive chronic kidney disease with stage 1 through stage 4 chronic kidney disease, or unspecified chronic kidney disease; E11.22 Type 2 diabetes mellitus with diabetic chronic kidney disease; R32 Unspecified urinary incontinence; I25.10 Atherosclerotic heart disease of native coronary artery without angina pectoris; M62.48 Contracture of muscle, other site; Z86.73 Personal history of transient ischemic attack (TIA), and cerebral infarction without residual deficits; Z79.82 Long term (current) use of aspirin
CPT/HCPCS: 82948-90; 97530; J1815; X3904; Z7610